=== PATIENT | female | born 1970 | race Caucasian/White ===

== ENCOUNTER 2018-01-12 05:04 | Day surgery (SDC) | payer OTHER ==
[2018-01-12 13:34] VITALS: BMI 32.9
--- NOTE | 2018-01-12 14:50 | HP ---
Admitting History and Physical - Admission Chief Complaint: Prolonged and heavy menses History of Present Illness: 47 yo Para 6 with h/o prolonged and heavy menses is pre op for endometrial ablation. History Source: Patient Limitations to Obtaining History: No Limitations - Past Medical History ...LMP: 01/11/18 ...: No ...Para: 6 - Past Surgical History Additional Past Surgical History: Tubal ligation - Smoking History Smoking history: Never smoked - Alcohol/Substance Use Hx Alcohol Use: No History of Substance Use: reports: None - Social History Usual Living Arrangement: Yes: With Child History of Recent Travel: No Home Medications - Allergies Allergies/Adverse Reactions: Allergies Allergy/AdvReac Type Severity Reaction Status Date / Time No Known Allergies Allergy Verified 07/21/15 10:53 - Home Medications Home Medications: Ambulatory Orders Ergocalciferol [Vitamin D2] 50,000 unit PO WEEKLY 01/12/18 Ferrous Sulfate [Feosol] 325 mg PO DAILY 01/12/18 Family Disease History - Family Disease History Family History: Unremarkable Review of Systems - Review of Systems Constitutional: reports: No Symptoms Eyes: reports: No Symptoms HENT: reports: No Symptoms Neck: reports: No Symptoms Cardiovascular: reports: No Symptoms Respiratory: reports: No Symptoms Gastrointestinal: reports: No Symptoms Genitourinary: reports: Vaginal Bleeding Breasts: reports: No Symptoms Reported Musculoskeletal: reports: No Symptoms Neurological: reports: No Symptoms Hematology/Lymphatic: reports: No Symptoms Psychiatric: reports: No Symptoms Pain Intensity: 2 Physical Examination Vital Signs: Vital Signs Temperature 97.4 F L 01/12/18 13:34 Pulse Rate 71 01/12/18 13:34 Respiratory Rate 20 01/12/18 13:34 Blood Pressure 112/73 01/12/18 13:34 O2 Sat by Pulse Oximetry (%) 99 01/12/18 13:35 Constitutional: Yes: Well Nourished Eyes: Yes: Conjunctiva Clear HENT: Yes: Atraumatic Neck: Yes: Supple Cardiovascular: Yes: Regular Rate and Rhythm Respiratory: Yes: Regular Gastrointestinal: Yes: Normal Bowel Sounds Neurological: Yes: Alert, Oriented ...Motor Strength: WNL Psychiatric: Yes: Alert, Oriented Problem List - Problems (1) Menorrhagia with regular cycle Code(s): N92.0 - EXCESSIVE AND FREQUENT MENSTRUATION WITH REGULAR CYCLE Assessment/Plan Menorrhagia Pre op for endometrial ablation Consent signed Anesthesia to see patient
[2018-01-12] MEDS ORDERED: MIDAZOLAM HCL 2 MG/2 ML SINGLE DOSE VIAL ONE (15:03)
[2018-01-12] MEDS ORDERED: SUCCINYLCHOLINE CHLORIDE 200 MG/10 ML VIAL ONE (15:04)
[2018-01-12] MEDS ORDERED: PROPOFOL 20 ML ONE (15:04)
--- NOTE | 2018-01-12 15:58 | OP ---
Operative Note - Note: Operative Date: 01/12/18 Pre-Operative Diagnosis: Menorrhagia Operation: D&C hysteroscopy / Endometrial ablation attempt Post-Operative Diagnosis: Same as Pre-op Surgeon: Shanon Elaine Anesthesia: General Specimens Removed: Endometrial curettings Estimated Blood Loss (mls): 100
[2018-01-12] MEDS ORDERED: PROMETHAZINE HCL 25 MG/1 ML VIAL IVPUSH PRN (16:23)
[2018-01-12] MEDS ORDERED: oxyCODONE HCL 5 MG TABLET PO PRN (16:23)
[2018-01-12] MEDS ORDERED: ONDANSETRON 4 MG/2 ML VIAL IVPUSH PRN (16:23)
[2018-01-12] MEDS ORDERED: LACTATED RINGERS SOLUTION 1,000 ML IV SCH (16:30)
[2018-01-12 16:56] VITALS: TEMP 97.7
[2018-01-12] MEDS ORDERED: oxyCODONE HCL 5 MG TABLET ONE (18:05)
[2018-01-12 19:48] VITALS: BP 111/78; PULSE 85
--- NOTE | 2018-01-17 18:32 | PATH ---
Surgical Pathology Report Patient Name: OLAMIDE BANUELOS [facility]. Rec. #: [id number] /Age/Gender: 1970 (Age: 47) / F Account: [id number] Location: [facility] SURGICAL Taken: 01/12/2018 Received: 01/13/2018 Reported: 01/17/2018 Physicians: Shanon Elaine M.D. Specimen(s) Received ENDOMETRIAL CURETTINGS Clinical History Menorrhagia Final Diagnosis ENDOMETRIAL CURETTINGS, DILATION AND CURETTAGE: FRAGMENTS OF SECRETORY ENDOMETRIUM WITH GLANDULAR AND STROMAL BREAKDOWN. Electronically Signed Olamide Talley M.D. Gross Description Received in formalin labeled "endometrial curettings," is a 3.5 x 3.2 x 0.4 cm aggregate of red-brown soft tissue fragments admixed with blood clot. The formalin is filtered and the specimen is entirely submitted in 2 cassettes. /01/13/2018 saudi/01/13/2018
--- NOTE | 2018-02-14 16:26 | OP ---
DATE OF OPERATION: 01/12/2018 PREOPERATIVE DIAGNOSIS: Menorrhagia. POSTOPERATIVE DIAGNOSIS: Menorrhagia. PROCEDURE: Dilatation and curettage, hysteroscopy, and endometrial ablation attempt. SURGEON: Shanon Elaine MD ANESTHESIA: General. COMPLICATIONS: None. ESTIMATED BLOOD LOSS: 100 mL DESCRIPTION OF PROCEDURE: Patient was taken to the operating room where general anesthesia was administered. Patient was then placed in lithotomy position. She was then prepped and draped in proper sterile fashion. A weighted speculum was placed in the vagina. The anterior lip of the cervix was grasped with a single-tooth tenaculum. Hysteroscope was then inserted into the uterus, and the hysteroscopy was then performed. Then, before ablation started, the button was pressed to initiate ablation, but the system failed at every attempt due to inability to obtain a cervical seal, and after 3 trials, the ablation procedure was aborted. I proceeded with the D&C, hysteroscopy. A sharp curettage was then performed. The camera was then reinserted for a second look at the endometrial cavity. Then, once finished, the instruments were removed. The patient was taken out of lithotomy position. She was taken to PACU in stable condition. PATHOLOGY: Endometrial curettings. Neris [id number]
== END 2018-01-12 19:48 | disposition home or self-care (01) ==
LOC: JASU-SURG 05:04
PROVIDERS: ATTEND Obstetrics & Gynecology
PROC: 0UDB7ZX Extraction of Endometrium, Via Natural or Artificial Opening, Diagnostic (ICD-10-PCS; principal; 2018-01-12 15:00)
PROC: 0UJD8ZZ Inspection of Uterus and Cervix, Via Natural or Artificial Opening Endoscopic (ICD-10-PCS; 2018-01-12 15:00)
DX: N92.0 Excessive and frequent menstruation with regular cycle (principal)
CPT/HCPCS: 88305-TC; 94760

== ENCOUNTER 2018-05-18 05:25 | Day surgery (SDC) | payer OTHER ==
[2018-05-17 09:03] VITALS: BMI 36.6
[2018-05-18] MEDS ORDERED: ROPIVACAINE HCL 0.5% 30ML VIAL ONE (07:18)
[2018-05-18] MEDS ORDERED: DEXAMETHASONE SOD PHOSPHATE/PF 10 MG/ML SDV ONE ×2 (07:18→07:46)
[2018-05-18] MEDS ORDERED: PHENAZOPYRIDINE HCL 100 MG TABLET (FP) ONE (07:39)
[2018-05-18] MEDS ORDERED: ceFAZolin SODIUM 1 GM VIAL ONE ×2 (07:40→16:29)
[2018-05-18] MEDS ORDERED: PHENAZOPYRIDINE HCL 100 MG TABLET (FP) PO ONE (08:00)
[2018-05-18] MEDS ORDERED: CEFAZOLIN 2 GM in DEXTROSE 5%-WATER - 50 ML IVPB ONE (09:00)
--- NOTE | 2018-05-18 09:15 | HP ---
History & Physical Update - History History: No Change - Physical Physical: No Change - Assessment Assessment: No Change - Plan Plan: No Change (full H&P in chart from 05/16/2018. [employer] phone used iint[employer]IF[employer] Systemser number [id number])
[2018-05-18] MEDS ORDERED: ceFAZolin SODIUM 1 GM VIAL IVPB ONE (10:43)
[2018-05-18] MEDS ORDERED: oxyCODONE HCL 5 MG TABLET PO PRN ×3 (12:46→12:49)
[2018-05-18] MEDS ORDERED: ONDANSETRON 4 MG/2 ML VIAL IVPUSH PRN ×2 (12:49→15:02)
[2018-05-18] MEDS ORDERED: ACETAMINOPHEN 1000 MG/100 ML VIAL (NON FORMULARY) IVPB ONE (12:49)
[2018-05-18] MEDS ORDERED: LACTATED RINGERS SOLUTION 1,000 ML IV SCH (13:00)
[2018-05-18] MEDS ORDERED: ACETAMINOPHEN 325 MG TABLET (FP) PO SCH ×2 (13:00→17:00)
[2018-05-18] MEDS ORDERED: LACTATED RINGERS SOLUTION 1,000 ML/1,000 ML INFUS.BAG IV SCH (13:15)
--- NOTE | 2018-05-18 14:06 | OP ---
Operative Note - Note: Operative Date: 05/18/18 Pre-Operative Diagnosis: Fibroid uterus Operation: Robotic assisted total hysterectomy and bilateral salpingectomy. Post-Operative Diagnosis: Same as Pre-op Surgeon: Sydnee Leigh Motion Picture Narrator: Megan De La Garza Anesthesia: General Estimated Blood Loss (mls): 350 Operative Report Dictated: Yes
--- NOTE | 2018-05-18 14:08 | OP ---
Operative Note - Note: Operative Date: 05/18/18 Pre-Operative Diagnosis: dysmennorrhea Operation: robotic assisted total hysterctomy and bilateral salpingectomy Surgeon: Sydnee Leigh Manager Wireless: Leobardo Herrera Anesthesia: General Specimens Removed: uterus/cervix, bilateral salpingx Estimated Blood Loss (mls): 50 Drains, Volume Out (mls): 400 (hernandez) Fluid Volume Replaced (mls): 1,000 Operative Report Dictated: Yes
--- NOTE | 2018-05-18 15:39 | OP ---
DATE OF OPERATION: 05/18/2018 DATE OF DICTATION: 05/18/2018 PREOPERATIVE DIAGNOSIS: Leiomyomatous uterus, anemia, menorrhagia. POSTOPERATIVE DIAGNOSIS: Leiomyomatous uterus, anemia, menorrhagia. OPERATION: Laparoscopic robotic total hysterectomy and bilateral salpingectomy. SURGEON: Reba Yeager M.D. POLY OPERATOR: Duy Machuca, Duy Lazo ANESTHESIA: General. ANESTHESIOLOGIST: Kong Mtz M.D. FINDINGS: Uterus approximately 14-15 cm in size. Tubes and ovaries noted to be normal. PROCEDURE: Patient was taken to operating room, placed in dorsal lithotomy position, prepped and draped in usual sterile fashion. A timeout was performed in accordance with hospital regulation. Attention was then turned to the vagina, where speculum was placed in the vagina, anterior lip of cervix grasped with single-toothed tenaculum. Cervix was dilated to accommodate the uterine manipulator, and Qiu catheter was then placed. Attention was then drawn to the umbilicus where an 8- mm umbilical incision was made. Veress needle was inserted into the cavity, approximately 3 to 4 L of CO2 was insufflated in the cavity. Veress needle was then removed, and an 8-mm trocar was inserted. Laparoscope with camera attached, visualization revealed leiomyomatous uterus about 15 cm in size, tubes and ovaries noted to be normal. Attention was then drawn to the left side where 2 trocars were placed, 1 in the upper abdomen. A 5-mm incision was made and airseal cannula was inserted. Parallel to the umbilical incision, an 8-mm incision was then inserted, and trocar was inserted under direct visualization. Attention was then drawn to the left side, where 2 parallel incisions were made, and after 8-mm incisions were made, trocars were inserted under direct visualization. The Endoshears and tenaculum was then placed on the right, the vessel sealer was placed on the left. Placements were confirmed. Da Kristine robot had been side docked to the patient's arm, and trocars had been attached. After all instruments were replaced and confirmation of placement was done, the attention was then drawn to the console. Control of the console was done, and tenaculum was used to elevate and move the uterus to the right side, where uteroovarian ligament was identified and clamped and cut, round ligaments identified, clamped and cut. Uterine arteries were identified and clamped and cut, coagulated and cut using vessel sealer. Down to the level of the vesicouterine reflection was then entered and bladder was bluntly dissected out of the operative field. Attention was then drawn to the right side, where the uterus was then elevated to the left side. Uteroovarian ligament identified, clamped and cut. Round ligament identified, clamped and cut. Uterine artery identified, clamped and cut, and coagulated. Bladder was dissected out of the operative field. Cardinal ligament identified, clamped and cut down to the level of the cervix. Endoshears were then used to cut the vagina away from the cervix circumferentially, and uterus and cervix was then removed to the vagina. Tubes were bilaterally grasped and coagulated and cut and left and right tube was then removed. The 2-0 V-Loc suture was then introduced and vagina was then closed in a continuous fashion. The needle was then removed to the trocar. Hemostasis was achieved. Estimated blood loss was 250 mL. All trocars were removed. Incisions were then closed using 3-0 Vicryl suture in continuous fashion. Wound was washed and dressed, patient was found to tolerate procedure well. Pad count was noted to be normal, and patient tolerated procedure well, was taken to recovery room in stable condition. REBA YEAGER M.D. [id number] MTDD
[2018-05-18] MEDS: oxyCODONE HCL 10 MG SUSTAINED ACTING TABLET PO SCH ×2 (16:26→22:22)
[2018-05-18] MEDS ORDERED: DEXTROSE 5%-WATER - 50 ML IVPB ONE (16:29)
[2018-05-18] MEDS: CEFAZOLIN 1 GM in DEXTROSE 5%-WATER - 50 ML IVPB SCH (16:30)
--- NOTE | 2018-05-18 17:16 | PN ---
Progress Note (short form) - Note Progress Note: Post-op check: Pt without nausea/feels hungry. Complaining of slight headache, oxycontin given. Vital Signs Period Temp Pulse Resp BP Sys/Bryson Pulse Ox Last 24 Hr 97.5 F-98.3 F 72-96 16-73 119-135/68-88 96-100 uop-700 ml since OR GEN: A&3x3, NAD ABD: soft, non-distended, inc tenderness. Inc c/d/i LE: scd in place and working A/p: s/p robotic hysterectomy/b/l salpingectomy Clears and advance as tolerated IV ibuprofen for pain as needed Continue IV fluids OOB/ambulate as tolerated DVT ppx with SCD/ambulate/lovenox in the am
[2018-05-18] MEDS: IBUPROFEN 800 MG/8 ML IJ IVPB PRN (17:28)
[2018-05-18 18:41] LABS: BASO % 0.1 % (0-2.0); HEMATOCRIT 37.4 % (32.4-45.2); HEMOGLOBIN 11.9 GM/dL (10.7-15.3); LYMPH % 7.1 % (8-40); MCH 24.9 pg (25.7-33.7); MCHC 31.9 g/dl (32.0-36.0); MEAN CELL VOLUME 77.9 fl (80-96); MONO % 0.9 % (3.8-10.2); NEUT % 91.9 % (42.8-82.8); PLATELET COUNT 366 K/MM3 (134-434); RBC 4.81 M/mm3 (3.60-5.2); RDW 17.8 % (11.6-15.6); WHITE BLOOD COUNT 12.8 K/mm3 (4.0-10.0)
[2018-05-18 19:03] LABS: ANION GAP 10 MMOL/L (8-16); BLOOD UREA NITROGEN 9 mg/dL (7-18); CALCIUM 9.2 mg/dL (8.5-10.1); CHLORIDE 103 mmol/L (98-107); CO2 25 mmol/L (21-32); CREATININE 0.6 mg/dL (0.55-1.3); GLUCOSE,RANDOM 122 mg/dL (74-106); POTASSIUM 4.4 mmol/L (3.5-5.1); SODIUM 138 mmol/L (136-145)
[2018-05-18 21:09] LABS: ANISOCYTOSIS 1+; MACROCYTOSIS 1+; OVALOCYTE 1+
[2018-05-18 21:11] LABS: PLATELET ESTIMATE ADEQUATE
[2018-05-18] MEDS: ACETAMINOPHEN 325 MG TABLET (FP) PO SCH (22:23)
[2018-05-19] MEDS ORDERED: ceFAZolin SODIUM 1 GM VIAL ONE ×3 (01:47→08:56)
[2018-05-19] MEDS ORDERED: DEXTROSE 5%-WATER - 50 ML IVPB ONE ×2 (01:47→08:56)
[2018-05-19] MEDS: CEFAZOLIN 1 GM in DEXTROSE 5%-WATER - 50 ML IVPB SCH ×2 (01:52→09:44)
[2018-05-19] MEDS: ACETAMINOPHEN 325 MG TABLET (FP) PO SCH ×2 (02:29→06:46)
--- NOTE | 2018-05-19 07:31 | SURG ---
Surgery Financial Market Dealer Note Financial Market Dealer: Leobardo Herrera PA-C Date of Service: 05/19/18 Diagnosis: Fibroid uterus Procedure: Robotic assisted total hysterectomy and bilateral salpingectomy I was present for the entirety of the operative procedure. For further detail, please refer to operative report.
[2018-05-19 08:29] LABS: BASO % 0.2 % (0-2.0); HEMATOCRIT 32.9 % (32.4-45.2); HEMOGLOBIN 10.6 GM/dL (10.7-15.3); LYMPH % 14.6 % (8-40); MCH 24.8 pg (25.7-33.7); MCHC 32.2 g/dl (32.0-36.0); MEAN PLT VOLUME 7.2 fl (7.5-11.1); MONO % 6.8 % (3.8-10.2); NEUT % 78.4 % (42.8-82.8); PLATELET COUNT 331 K/MM3 (134-434); RBC 4.27 M/mm3 (3.60-5.2); RDW 17.6 % (11.6-15.6); WHITE BLOOD COUNT 10.1 K/mm3 (4.0-10.0)
--- NOTE | 2018-05-19 08:50 | PN ---
Progress Note (short form) - Note Progress Note: POD#1 Pt without any complaints of nausea. Qiu removed this am and waiting to void. OOB and ambulate. She hasn't passed any flatus. Vital Signs Period Temp Pulse Resp BP Sys/Bryson Pulse Ox Last 24 Hr 97.6 F-99.3 F 72-96 18-73 102-136/65-81 96-100 uop-3100ml yellow/urine outpt GEN: A&0x3, NAD CV: RRR Lungs: CTA b/l ABD: soft, non-distended, inc tenderness. Inc c/d/i LE: Guicho/scds in place. No calf swelling or tenderness b/l A/P: Laboratory Tests 05/18/05/18/18 05/19/18 18:00 18:00 06:20 WBC 12.8 H 10.1 H Hgb 11.9 10.6 L Hct 37.4 32.9 Sodium 138 Potassium 4.4 Chloride 103 Carbon Dioxide 25 Anion Gap 10 BUN 9 A/P: 48 yo female s/p robotic assisted hysterectomy and b/l salpingectomy Diet advanced this am, awaiting flatus OOB and ambulate DVT ppx with SCDs/lovenox Discontinue IVF Oral pain medicaitons/iv ibuprofen D/w Dr. Leigh
[2018-05-19] MEDS ORDERED: PT OWN MED DRAWER 7, Y5N ONE (08:56)
[2018-05-19 09:05] LABS: ANION GAP 6 MMOL/L (8-16); BLOOD UREA NITROGEN 9 mg/dL (7-18); CALCIUM 8.2 mg/dL (8.5-10.1); CHLORIDE 104 mmol/L (98-107); CO2 26 mmol/L (21-32); CREATININE 0.5 mg/dL (0.55-1.3); GLUCOSE,RANDOM 92 mg/dL (74-106); POTASSIUM 3.9 mmol/L (3.5-5.1); SODIUM 136 mmol/L (136-145)
[2018-05-19] MEDS ORDERED: FERROUS SO4 325 MG TABLET (FP) PO SCH (10:00)
[2018-05-19] MEDS ORDERED: ENOXAPARIN NA (PORCINE) 30 MG/0.3 ML DISP.SYRIN SQ SCH (10:00)
[2018-05-19] MEDS ORDERED: ENOXAPARIN NA (PORCINE) 40 MG/0.4 ML DISP.SYRIN SQ SCH (10:00)
[2018-05-19] MEDS: IBUPROFEN 800 MG/8 ML IJ IVPB PRN (10:44)
[2018-05-19 10:48] LABS: ANISOCYTOSIS 0; MACROCYTOSIS 0; PLATELET ESTIMATE NORMAL
[2018-05-19 12:16] VITALS: TEMP 98.5
[2018-05-19 14:00] VITALS: BP 115/68; PULSE 73
--- NOTE | 2018-05-22 10:09 | PATH ---
Surgical Pathology Report Patient Name: MARGUERITE BANUELOS [facility]. Rec. #: [id number] /Age/Gender: 1970 (Age: 48) / F Account: [id number] Location: AMBULATORY SURG Taken: 05/18/2018 Received: 05/18/2018 Reported: 05/22/2018 Physicians: Sydnee Leigh M.D. Specimen(s) Received A: UTERUS B: LEFT FALLOPIAN TUBE C: RIGHT FALLOPIAN TUBE Clinical History Leiomyoma of uterus Final Diagnosis A. UTERUS, HYSTERECTOMY: HYSTERECTOMY SPECIMEN WITH LEIOMYOMATA. PROLIFERATIVE ENDOMETRIUM. CERVIX WITH SQUAMOUS METAPLASIA, FOCAL ACUTE AND CHRONIC INFLAMMATION. B. LEFT FALLOPIAN TUBE, SALPINGECTOMY: PORTION OF FALLOPIAN TUBE WITH PARATUBAL CYSTS. C. RIGHT FALLOPIAN TUBE, SALPINGECTOMY: PORTION OF FALLOPIAN TUBE SHOWING FOCAL ACUTE AND CHRONIC SALPINGITIS IN A BACKGROUND OF PARATUBAL CYSTS. Electronically Signed Beck Wilson M.D. Gross Description A. Received in formalin labeled "uterus is," is a 355 g uterus with an attached cervix. No tubes or ovaries present. The specimen measures 15.1 cm from superior to inferior, 8.5 cm from anterior to posterior, and 6.5 cm from left to right. The serosa is jiang-pink and smooth. The attached cervix measures 5 cm in length and averages 3.1 cm in diameter. The ectocervix is jiang-pink, smooth and glistening. The endocervix is unremarkable. The endometrial cavity measures 7 cm in length and averages 4.8 cm from cornu to cornu. The endometrium is jiang-red and measures up to 0.2 cm in thickness. The myometrium displays multiple intramural and two submucosal nodules, ranging from 0.8cm to 5.0cm in greatest dimension. The cut surface of the nodules is jiang and rubbery with whorled architecture. No necrosis, discoloration, or hemorrhage present. The remaining myometrium is jiang-pink and measures up to 2.5 cm in thickness. Palaeontologist sections are submitted in 12 cassettes as follows: 1-3: anterior cervix; 7-4-crhveaxz endomyometrium with intramural nodule; 6-7: posterior cervix; 0-0-lzjxqxfda endomyometrium with submucosal nodule; 10 one of the submucosa nodule 11-12-the largest nodule (submucosal). B. Received fresh labelled "left fallopian tube" is a 0.7 cm long by 0.5 cm in diameter portion of tissue consistent with a portion of fallopian tube with a fimbriated end. Multiple paratubal cysts measuring up to 1cm in greatest dimension are present. Sectioned and totally submitted in two cassettes. C. Received fresh labelled "right fallopian tube" is a 2.5 cm long by 1.0 cm in diameter portion of tissue consistent with a portion of fallopian tube. The fimbriated end is identified. Multiple paratubal cysts measuring up to 0.8cm in greatest dimension are present. Sectioned and business banking representative sections submitted in two cassettes. __ OLAF/05/19/2018 nadir/05/19/2018
== END 2018-05-19 15:36 | disposition home or self-care (01) ==
LOC: JASUSAT 05:25 → J8W 15:34 → JASUSAT 05-19 15:36
PROVIDERS: ATTEND Obstetrics & Gynecology
PROC: 8E0W8CZ Robotic Assisted Procedure of Trunk Region, Via Natural or Artificial Opening Endoscopic (ICD-10-PCS; 2018-05-18)
PROC: 0UT9FZZ Resection of Uterus, Via Natural or Artificial Opening With Percutaneous Endoscopic Assistance (ICD-10-PCS; principal; 2018-05-18 09:00)
PROC: 0UT7FZZ Resection of Bilateral Fallopian Tubes, Via Natural or Artificial Opening With Percutaneous Endoscopic Assistance (ICD-10-PCS; 2018-05-18 09:00)
DX: D25.9 Leiomyoma of uterus, unspecified (principal); D64.9 Anemia, unspecified; N92.0 Excessive and frequent menstruation with regular cycle
CPT/HCPCS: 58552; S2900; 36415; 80048; 85025; 86850; 86900; 86901; 86922; 88302-TC; 88307-TC; 94760; J0131

== ENCOUNTER 2018-07-25 12:35 | Emergency (ER) | payer OTHER ==
[2018-07-25 13:06] VITALS: BP 137/73; PULSE 95; TEMP 98.8; BMI 46.0
[2018-07-25] MEDS ORDERED: DEXAMETHASONE LIQUID 0.5 MG/5 ML 240 ML BULK BOTTLE PO ONE (14:00)
--- NOTE | 2018-07-25 14:00 | PDOC ---
History of Present Illness - General Chief Complaint: Cold Symptoms Stated Complaint: PAIN Time Seen by Provider: 07/25/18 13:53 History Source: Patient Exam Limitations: Language Barrier (friendfundracom used) - History of Present Illness Initial Comments: 07/25/18 19:21 Patient is a 48-year-old female who presents to the emergency department for 2 months of coughing. Patient states that she had a cold approximately 2 months ago and then the coughing never stopped. She states that the cough alternates between being dry and bringing up green mucus. She states that she has increased coughing at night. Denies fevers, chills, sore throat, earache, difficulty breathing, nausea, vomiting, and chest pain Past History - Travel Traveled outside of the country in the last 30 days: No Close contact w/someone who was outside of country & ill: No - Past Medical History Allergies/Adverse Reactions: Allergies Allergy/AdvReac Type Severity Reaction Status Date / Time No Known Allergies Allergy Verified 07/25/18 13:05 Home Medications: Ambulatory Orders Ergocalciferol [Vitamin D2] 50,000 unit PO WEEKLY 01/12/18 Ferrous Sulfate [Feosol] 325 mg PO DAILY 01/12/18 Oxycodone HCl/Acetaminophen [Percocet 5-325 mg Tablet] 1 - 2 tab PO Q6H PRN #30 tab MDD 8 05/19/18 Albuterol Sulfate Inhaler - [Ventolin HFA Inhaler -] 1 - 2 inh PO Q4H #1 inhaler 07/25/18 Guaifenesin AC [Robitussin AC] 10 ml PO Q6H PRN #200 ml MDD 4 07/25/18 Methylprednisolone [Medrol Dose Luis] 4 mg PO ASDIR #21 tablet 07/25/18 Anemia: Yes Asthma: No Cancer: No Cardiac Disorders: No CVA: No COPD: No CHF: No Dementia: No Diabetes: No GI Disorders: No Disorders: No HTN: No Hypercholesterolemia: No Liver Disease: No Seizures: No Thyroid Disease: No - Suicide/Smoking/Psychosocial Hx Smoking History: Never smoked Have you smoked in the past 12 months: No Information on smoking cessation initiated: No Hx Alcohol Use: No Drug/Substance Use Hx: No Substance Use Type: None Hx Substance Use Treatment: No Review of Systems - Review of Systems Able to Perform ROS?: Yes Comments:: 07/25/18 17:18 CONSTITUTIONAL: Absent: fever, chills, diaphoresis, generalized weakness, malaise, loss of appetite HEENT: Absent: rhinorrhea, nasal congestion, throat pain, throat swelling, difficulty swallowing, mouth swelling, ear pain, eye pain, visual Changes CARDIOVASCULAR: Absent: chest pain, loss of consciousness, palpitations, irregular heart rate, peripheral edema RESPIRATORY: Present: cough, shortness of breath Absent: dyspnea with exertion, orthopnea, wheezing, stridor, hemoptysis GASTROINTESTINAL: Absent: abdominal pain, abdominal distension, nausea, vomiting, diarrhea, constipation, melena, hematochezia GENITOURINARY: Absent: dysuria, frequency, urgency, hesitancy, hematuria, flank pain, genital pain MUSCULOSKELETAL: Absent: myalgia, arthralgia, joint swelling SKIN: Absent: rash, itching, pallor HEMATOLOGIC/IMMUNOLOGIC: Absent: easy bleeding, easy bruising, lymphadenopathy, frequent infections ENDOCRINE: Absent: unexplained weight gain, unexplained weight loss, heat intolerance, cold intolerance NEUROLOGIC: Absent: headache, focal weakness or paresthesias, dizziness, unsteady gait, seizure, mental status changes, bladder or bowel incontinence PSYCHIATRIC: Absent: anxiety, depression, suicidal or homicidal ideation, hallucinations. Is the patient limited Khmer proficient: No *Physical Exam - Vital Signs Last Vital Signs Temp Pulse Resp BP Pulse Ox 98.8 F 95 H 22 H 137/73 99 07/25/18 13:03 07/25/18 13:03 07/25/18 13:03 07/25/18 13:03 07/25/18 13:03 - Physical Exam Comments: 07/25/18 17:19 GENERAL: Well developed, well nourished. Awake and alert. No acute distress. Moderate dry cough upon start of examination HEENT: Normocephalic, atraumatic. PERRLA, EOMI. No conjunctival pallor. Sclera are non- icteric. Moist mucous membranes. Oropharynx is clear. NECK: Supple. Full ROM. No JVD. Carotid pulses 2+ and symmetric, without bruits. No thyromegaly. No lymphadenopathy. CARDIOVASCULAR: Regular rate and rhythm. No murmurs, rubs, or gallops. Distal pulses are 2+ and symmetric. PULMONARY: No evidence of respiratory distress. Lungs with scattered expiratory wheezing. No rales or rhonchi. ABDOMINAL: Soft. Non-tender. Non-distended. No rebound or guarding. No organomegaly. Normoactive bowel sounds. MUSCULOSKELETAL Normal range of motion at all joints. No bony deformities or tenderness. No CVA tenderness. EXTREMITIES: No cyanosis. No clubbing. No edema. No calf tenderness. SKIN: Warm and dry. Normal capillary refill. No rashes. No jaundice. NEUROLOGICAL: Alert, awake, appropriate. Cranial nerves 2-12 intact. No deficits to light touch and temperature in face, upper extremities and lower extremities. No motor deficits in the in face, upper extremities and lower extremities. Normoreflexic in the upper and lower extremities. Normal speech. Toes are down- going bilaterally. Gait is normal without ataxia. PSYCHIATRIC: Cooperative. Good eye contact. Appropriate mood and affect. Moderate Sedation - Procedure Monitoring Vital Signs: Procedure Monitoring Vital Signs Temperature 98.8 F 07/25/18 13:03 Pulse Rate 95 H 07/25/18 13:03 Respiratory Rate 22 H 07/25/18 13:03 Blood Pressure 137/73 07/25/18 13:03 O2 Sat by Pulse Oximetry (%) 99 07/25/18 13:03 Medical Decision Making - Medical Decision Making 07/25/18 17:24 Patient is a 48-year-old female who presents to the emergency department for cough for 2 months. On exam patient sounds tight with fair aeration of the bases and expiratory wheezing. Patient is afebrile and vital signs are stable. Chest x-ray is negative for pneumonia. Patient given Decadron, Robitussin, for DuoNeb's with relief of her symptoms. Repeat lung exam with good aeration to the bases and no wheezing. Most likely a bronchitis or reactive airway disease. We'll discharge home with prednisone, albuterol inhaler and Robitussin- Patient states she has follow-up with her primary care doctor on Tuesday, told to keep that appointment. Discharge home I discussed the physical exam findings, ancillary test results and final diagnoses with the patient. I answered all of the patient's questions. The patient was satisfied with the care received and felt comfortable with the discharge plan and treatment plan. The Patient agrees to follow up with the primary care physician/specialist within 24-72 hours. Return precautions were given. *DC/Admit/Observation/Transfer Diagnosis at time of Disposition: Bronchitis - Discharge Dispostion Disposition: HOME Condition at time of disposition: Stable Decision to Admit order: No - Prescriptions Prescriptions: Albuterol Sulfate Inhaler - [Ventolin HFA Inhaler -] 1 - 2 inh PO Q4H #1 inhaler Guaifenesin AC [Robitussin AC] 10 ml PO Q6H PRN #200 ml MDD 4 PRN Reason: Cough Methylprednisolone [Medrol Dose Luis] 4 mg PO ASDIR #21 tablet - Referrals Referrals: Kendrick Ash MD [Primary Care Provider] - - Patient Instructions Printed Discharge Instructions: DI for Acute Bronchitis Additional Instructions: You have bronchitis. This is an irritation of the upper airway which is causing her cough. Your chest x-ray was normal today. There is no pneumonia. Please take the Medrol Dosepak as prescribed. He instructions are in the box. You may use the albuterol inhaler every 4 hours (1-2 puffs) to help with her breathing. You may take the Robitussin with codeine 10ml every 6 hours as needed for cough. Do not drink alcohol or drive after taking this medication as it may make you sleepy. Please follow-up with your primary care doctor as previously arranged for Tuesday. Return to the emergency department if you have increased difficulty breathing, worsening shortness of breath, fever, or if you have any changes in your symptoms. Tienes bronquitis. [place] es allan irritacin de la va area superior que est causando pickett tos. Tu radiografa de trax era normal hoy. No hay neumona. Por favor, tome el Medrol Dosepak segn lo prescrito. Las instrucciones estn en la caja. Puede usar el inhalador de albuterol cada 4 horas (1-2 inhalaciones) para ayudarla a respirar. Puede na el Robitussin con codena 10 ml cada 6 horas segn sea necesario para la tos. No jeremy alcohol ni maneje despus de na yvette medicamento, ya que puede causarle sueo. Por favor jody un seguimiento con pickett mdico de atencin primaria janae se asiya previamente para el viernes. Regrese al departamento de emergencias si tiene ms dificultad para respirar, empeoramiento de la dificultad para respirar, fiebre o si tiene algn cambio en nora sntomas. Print Language: BRITISH [place] - Post Discharge Activity Forms/Work/School Notes: Back to Work
[2018-07-25] MEDS ORDERED: ALBUTEROL SO4 2.5/IPRATROPIUM 0.5 INH SOL 3 ML VIAL.NEB. NEB ONE ×3 (14:01→16:07)
[2018-07-25] MEDS ORDERED: guaiFENesin/D-METHORPHAN HB 1 EACH TAB.ER.12H PO ONE (14:01)
[2018-07-25] MEDS ORDERED: guaiFENesin/D-METHORPHAN HB 10 ML UNIT-DOSE CUPS ONE (14:13)
[2018-07-25] MEDS ORDERED: DEXAMETHASONE SOD PHOSPHATE 10 MG/1 ML VIAL ONE (14:13)
[2018-07-25] MEDS ORDERED: guaiFENesin/D-METHORPHAN HB 10 ML UNIT-DOSE CUPS PO ONE (15:42)
[2018-07-25] MEDS: ALBUTEROL SO4 2.5/IPRATROPIUM 0.5 INH SOL 3 ML VIAL.NEB. NEB SCH ×4 (15:43→16:38)
== END 2018-07-25 17:25 | disposition home or self-care (01) ==
LOC: JERFT 12:35
PROC: 3E0F7GC Introduction of Other Therapeutic Substance into Respiratory Tract, Via Natural or Artificial Opening (ICD-10-PCS; principal; 2018-07-25)
PROC: 3E0F7GC Introduction of Other Therapeutic Substance into Respiratory Tract, Via Natural or Artificial Opening (ICD-10-PCS; 2018-07-25)
DX: J40 Bronchitis, not specified as acute or chronic (principal); D64.9 Anemia, unspecified
CPT/HCPCS: 71046-TC-FY; 94640; 99281-25

== ENCOUNTER 2019-04-17 09:49 | Emergency (ER) | payer OTHER ==
[2019-04-17 09:56] VITALS: BMI 34.7
[2019-04-17] MEDS ORDERED: ACETAMINOPHEN 1000 MG/100 ML VIAL (NON FORMULARY) IVPB ONE (10:22)
[2019-04-17] MEDS ORDERED: SODIUM CHLORIDE 1,000 ML IV STA (10:22)
[2019-04-17] MEDS ORDERED: ACETAMINOPHEN INJECTION 100 ML IVPB ONE (10:27)
--- NOTE | 2019-04-17 10:27 | PDOC ---
History of Present Illness - General Chief Complaint: Pain Stated Complaint: COUGH/FEVER/HEADACHE/ABD PAIN Time Seen by Provider: 04/17/19 10:17 History Source: Patient - History of Present Illness Timing/Duration: other Past History - Past Medical History Allergies/Adverse Reactions: Allergies Allergy/AdvReac Type Severity Reaction Status Date / Time No Known Allergies Allergy Verified 04/17/19 09:56 Home Medications: Ambulatory Orders Ergocalciferol [Vitamin D2] 50,000 unit PO WEEKLY 01/12/18 Ferrous Sulfate [Feosol] 325 mg PO DAILY 01/12/18 Oxycodone HCl/Acetaminophen [Percocet 5-325 mg Tablet] 1 - 2 tab PO Q6H PRN #30 tab MDD 8 05/19/18 Albuterol Sulfate Inhaler - [Ventolin HFA Inhaler -] 1 - 2 inh PO Q4H #1 inhaler 07/25/18 Guaifenesin AC [Robitussin AC] 10 ml PO Q6H PRN #200 ml MDD 4 07/25/18 Methylprednisolone [Medrol Dose Luis] 4 mg PO ASDIR #21 tablet 07/25/18 Ibuprofen [Motrin -] 600 mg PO QID #28 tablet 04/17/19 Sulfamethoxazole/Trimethoprim [Bactrim Ds Tablet] 1 each PO BID #14 tablet 04/17 Anemia: Yes Asthma: No Cancer: No Cardiac Disorders: No CVA: No COPD: No CHF: No Dementia: No Diabetes: No GI Disorders: No Disorders: No HTN: No Hypercholesterolemia: No Liver Disease: No Seizures: No Thyroid Disease: No - Suicide/Smoking/Psychosocial Hx Smoking History: Never smoked Have you smoked in the past 12 months: No Hx Alcohol Use: No Drug/Substance Use Hx: No Substance Use Type: None Hx Substance Use Treatment: No Review of Systems - Review of Systems Constitutional: Yes: Fever, Malaise Respiratory: No: Cough, Shortness of Breath Cardiac (ROS): No: Chest Pain ABD/GI: No: Diarrhea, Nausea, Vomiting : Yes: Flank Pain. No: Dysuria, Discharge Musculoskeletal: Yes: Back Pain. No: Neck Pain Neurological: Yes: Headache. No: Dizziness *Physical Exam - Vital Signs Last Vital Signs Temp Pulse Resp BP Pulse Ox 98.6 F 100 H 18 117/85 98 04/17/19 09:54 04/17/19 09:54 04/17/19 09:54 04/17/19 09:54 04/17/19 09:54 - Physical Exam General Appearance: Yes: Appropriately Dressed, Mild Distress HEENT: positive: Normal Voice Neck: positive: Supple Respiratory/Chest: positive: Lungs Clear, Normal Breath Sounds. negative: Respiratory Distress Cardiovascular: positive: Regular Rate, S1, S2 Gastrointestinal/Abdominal: positive: Normal Bowel Sounds, Tender (poorly localized ttp to L side of abd), Soft. negative: Distended, Guarding, Rebound, Spleenomegaly Musculoskeletal: positive: CVA Tenderness (L) Extremity: positive: Normal Inspection Integumentary: positive: Dry, Warm Neurologic: positive: Fully Oriented, Alert, Normal Mood/Affect, Motor Strength 12/24 ED Treatment Course - LABORATORY CBC & Chemistry Diagram: 04/17/19 10:37 04/17/19 10:37 Medical Decision Making - Medical Decision Making 04/17/19 10:23 49-year-old female s/p remote hysterectomy, migraines, here with malaise with SANTANA , ow-grade fever and body aches including left mid back pain x 6 days. Patient denies any dysuria or frequency but does report ?hematuria vs dark urine. No neck pain, dizziness, photophobia, nausea, vomiting or change in bowel movements. No h/o renal stones. No recen travel or sick contacts see exam Possible uti/pyelo vs viral syndrome Tachy to 111 and errol mildly uncomfortable w/ ?L CVAT -antipyretic -IVF -labs -ua/cx -dispo pending 04/17/19 10:27 04/17/19 12:14 Labs unremarkable. UA w/ 2+ LE, >100 fritz and 39 WBC. Based on sxs, will tx (no prior sen on record here). Dose of rocephin in progress. Anticipate dc w/ abx 04/17/19 13:04 S/p rocephin. Rpt vitals wnl. Stable for dc w/ return precautions *DC/Admit/Observation/Transfer Diagnosis at time of Disposition: Dysuria Fever Qualifiers: Fever type: unspecified Qualified Code(s): R50.9 - Fever, unspecified - Discharge Dispostion Disposition: HOME Condition at time of disposition: Improved - Prescriptions Prescriptions: Ibuprofen [Motrin -] 600 mg PO QID #28 tablet Sulfamethoxazole/Trimethoprim [Bactrim Ds Tablet] 1 each PO BID #14 tablet - Referrals Referrals: Kendrick Ash MD [Primary Care Provider] - - Patient Instructions Printed Discharge Instructions: Kidney Infection Additional Instructions: Segn nora laboratorios, recibi tratamiento para allan posible infeccin de orina / rin. [place] los medicamentos segn las indicaciones y, si los sntomas persisten y / o empeoran, regrese al servicio de urgencias. De lo contrario, jody un seguimiento con pickett PMD Print Language: MONGOLIAN - Post Discharge Activity Forms/Work/School Notes: Back to Work
[2019-04-17 10:51] LABS: BASO % 0.6 % (0-2.0); EOS % 1.8 % (0-4.5); HEMATOCRIT 38.6 % (32.4-45.2); HEMOGLOBIN 12.7 GM/dL (10.7-15.3); LYMPH % 28.5 % (8-40); MCH 25.4 pg (25.7-33.7); MCHC 32.9 g/dl (32.0-36.0); MEAN CELL VOLUME 77.2 fl (80-96); MEAN PLT VOLUME 6.8 fl (7.5-11.1); MONO % 12.2 % (3.8-10.2); NEUT % 56.9 % (42.8-82.8); PLATELET COUNT 410 K/MM3 (134-434); RDW 15.8 % (11.6-15.6); WHITE BLOOD COUNT 7.8 K/mm3 (4.0-10.0)
[2019-04-17 11:08] LABS: EPI CELLS 2.3 /HPF (0-5/HPF); HYALINE CASTS 12 /lpf (0-8); URINE APPEARANCE CLEAR; URINE BACTERIA 173.4 /hpf (NEGATIVE); URINE BILIRUBIN NEGATIVE (NEGATIVE); URINE COLOR YELLOW; URINE GLUCOSE (UA) NEGATIVE (NEGATIVE); URINE KETONE TRACE (NEGATIVE); URINE LEUK ESTERASE 2+ (NEGATIVE); URINE NITRITE NEGATIVE (NEGATIVE); URINE PROTEIN NEGATIVE (NEGATIVE); URINE RBC 6 /hpf (0-4); URINE UROBILINOGEN 0.2 mg/dL (0.2-1.0); URINE WBC 39 /hpf (0-5)
--- NOTE | 2019-04-17 11:10 | PDOC ---
*Physical Exam - Vital Signs Last Vital Signs Temp Pulse Resp BP Pulse Ox 98.6 F 100 H 18 117/85 98 04/17/19 09:54 04/17/19 09:54 04/17/19 09:54 04/17/19 09:54 04/17/19 09:54 ED Treatment Course - LABORATORY CBC & Chemistry Diagram: 04/17/19 10:37 04/17/19 10:37 - ADDITIONAL ORDERS Additional order review: Laboratory Results 04/17/19 10:37 Urine Color Yellow Urine Appearance Clear Urine pH 6.0 Ur Specific [place] 1.013 Urine Protein Negative Urine Glucose (UA) Negative Urine Ketones Trace H Urine Blood Trace Urine Nitrite Negative Urine Bilirubin Negative Urine Urobilinogen 0.2 Ur Leukocyte Esterase 2+ H Urine WBC (Auto) 39 Urine RBC (Auto) 6 Urine Casts (Auto) 12 U Epithel Cells (Auto) 2.3 Urine Bacteria (Auto) 173.4 - Medications Given in the ED: ED Medications Discontinued Medications Generic Name Dose Route Start Last Admin Trade Name Freq PRN Reason Stop Dose Admin Acetaminophen 1,000 mg 04/17/19 10:22 04/17/19 10:44 Ofirmev Injection - IVPB 04/17/19 10:23 1,000 mg ONCE ONE Administration Medical Decision Making - Medical Decision Making 04/17/19 11:10 Pt seen by Midlevel Provider under my direct supervision Ancillary studies reviewed Laboratory Tests 04/17/19 04/17/19 04/17/19 10:37 10:37 10:37 WBC 7.8 BUN 10.7 Creatinine 0.7 Urine Nitrite Negative Ur Leukocyte Esterase 2+ H Urine WBC (Auto) 39 Urine RBC (Auto) 6 Urine Casts (Auto) 12 U Epithel Cells (Auto) 2.3 Urine Bacteria (Auto) 173.4 Abx ordered Cultures sent Will adjust abx as dictated by urine culture *DC/Admit/Observation/Transfer Diagnosis at time of Disposition: Fever, Dysuria - Discharge Dispostion Disposition: HOME Condition at time of disposition: Improved - Prescriptions Prescriptions: Ibuprofen [Motrin -] 600 mg PO QID #28 tablet Sulfamethoxazole/Trimethoprim [Bactrim Ds Tablet] 1 each PO BID #14 tablet - Referrals Referrals: Kendrick Ash MD [Primary Care Provider] - - Patient Instructions Printed Discharge Instructions: Kidney Infection Additional Instructions: [place] nora laboratorios, recibi tratamiento para allan posible infeccin de orina / rin. [place] los medicamentos segn las indicaciones y, si los sntomas persisten y / o empeoran, regrese al servicio de urgencias. De lo contrario, jody un seguimiento con pickett PMD Print Language: YAKUT - Post Discharge Activity Forms/Work/School Notes: Back to Work
[2019-04-17 11:18] LABS: ALBUMIN 3.4 g/dl (3.4-5.0); BILIRUBIN,TOTAL 0.6 mg/dL (0.2-1); BLOOD UREA NITROGEN 10.7 mg/dL (7-18); CALCIUM 9.1 mg/dL (8.5-10.1); CREATININE 0.7 mg/dL (0.55-1.3); POTASSIUM 3.8 mmol/L (3.5-5.1); TOT PROT 7.8 g/dl (6.4-8.2)
[2019-04-17] MEDS ORDERED: CEFTRIAXONE 1 GM/50 ML BAG ONE (11:46)
[2019-04-17 12:07] VITALS: BP 107/62; PULSE 75; TEMP 98.8
== END 2019-04-17 13:17 | disposition home or self-care (01) ==
LOC: JER 09:49
PROC: 3E033NZ Introduction of Analgesics, Hypnotics, Sedatives into Peripheral Vein, Percutaneous Approach (ICD-10-PCS; principal; 2019-04-17)
PROC: 3E03329 Introduction of Other Anti-infective into Peripheral Vein, Percutaneous Approach (ICD-10-PCS; 2019-04-17)
DX: R30.0 Dysuria (principal)
CPT/HCPCS: 36415; 80053; 81003; 85025; 87086; 87186; 96374; 96375; 99283-25; J0131; J7030

== ENCOUNTER 2019-06-09 20:57 | Emergency (ER) | payer OTHER ==
--- NOTE | 2019-06-09 21:13 | PDOC ---
History of Present Illness - General Chief Complaint: Pain Stated Complaint: TOOTHACHE Time Seen by Provider: 06/09/19 21:11 - History of Present Illness Initial Comments: 06/09/19 21:13 CHIEF COMPLAINT: dental pain HISTORY OF PRESENT ILLNESS: 49 yo F with hx of migraines and uterine fibroids (s /p hysterectomy) presents to fast track with tooth pain. Patient reports having had tooth pain for 2 months now, and was given amoxicillin by a dentist 2 months ago but has been having problems with her insurance and has been unable to go back. She reports pain to both side of her teeth but more localized to the R upper and lower molars. She also c/o of pain to "all the bones in my face " and describes the pain as a sharp, squeezing pain. Patient denies any fever, chills, nausea, vomiting diarrhea. No recent travel or sick contacts. PAST MEDICAL HISTORY: Denies past medical history FAMILY HISTORY: Denies SOCIAL HISTORY: Denies tobacco, alcohol, illicit drug use. SURGICAL HISTORY: Denies ALLERGIES: No known drug allergies REVIEW OF SYSTEMS General/Constitutional: Denies fever or chills. Denies weakness, weight change. HEENT: Dental pain. Cardiovascular: Denies chest pain or shortness of breath. Respiratory: Denies cough, wheezing, or hemoptysis. Gastrointestinal: Denies nausea, vomiting, diarrhea or constipation. Denies rectal bleeding. Genitourinary: Denies dysuria, frequency, or change in urination. Musculoskeletal: Denies joint or muscle swelling or pain. Denies neck or back pain. Skin and breasts: Denies rash or easy bruising. Neurologic: Headache. Denies vertigo, loss of consciousness, or loss of sensation. Psychiatric: Denies depression or anxiety. PHYSICAL EXAM General Appearance: Well-appearing, appropriately dressed. No apparent distress , no intoxication. HEENT: Marked TTP over maxillary/temporal/mastoid bones. Normal dentition, no obvious dental caries or fractures appreciated. EOMI, PERRLA, normal ENT inspection, normal voice, TMs normal, pharynx normal. No conjunctival pallor. No photophobia, scleral icterus. Neck: Supple. Trachea midline. No tenderness, rigidity, carotid bruit, stridor , lymphadenopathy, or thyromegaly. Respiratory/Chest: Lungs CTAB. No shortness of breath, chest tenderness, respiratory distress, accessory muscle use. No crackles, rales, rhonchi, stridor , wheezing, dullness Cardiovascular: RRR. S1, S2. No JVD, murmur, bradycardia, tachycardia. Vascular Pulses: Dorsalis-Pedis (R): 2+, Dorsalis-Pedis (L): 2+ Gastrointestinal/Abdominal: Normal bowel sounds. Abdomen soft, non-distended. No tenderness or rebound tenderness. No organomegaly, pulsatile mass, guarding , hernia, hepatomegaly, splenomegaly. Lymphatic: No adenopathy, tenderness. Musculoskeletal/Extremities: Normal inspection. FROM of all extremities, normal capillary refill. Pelvis Stable. No CVA tenderness. No tenderness to extremities, pedal edema, swelling, erythema or deformity. Integumentary: Appropriate color, dry, warm. No cyanosis, erythema, jaundice or rash Neurologic: space planner II-XII intact. Fully oriented, alert. Appropriate mood/affect. Motor strength 5/5. No appreciable EOM palsy, facial droop or sensory deficit. Past History - Past Medical History Allergies/Adverse Reactions: Allergies Allergy/AdvReac Type Severity Reaction Status Date / Time No Known Allergies Allergy Verified 06/09/19 22:32 Home Medications: Ambulatory Orders Ergocalciferol [Vitamin D2] 50,000 unit PO WEEKLY 01/12/18 Ferrous Sulfate [Feosol] 325 mg PO DAILY 01/12/18 Albuterol Sulfate Inhaler - [Ventolin HFA Inhaler -] 1 - 2 inh PO Q4H #1 inhaler 07/25/18 Ibuprofen [Motrin -] 600 mg PO QID #28 tablet 04/17/19 Clindamycin [Cleocin -] 300 mg PO Q6HPO #28 capsule 06/09/19 Fluticasone Furoate [Flonase Sensimist] 15.8 ml NS BID #1 spray.susp 06/09/19 Oxycodone HCl/Acetaminophen [Percocet 5-325 mg Tablet] 1 tab PO Q6H #20 tablet MDD 6 06/09/19 Pseudoephedrine HCl [Sudafed] 60 mg PO QID #30 tablet 06/09/19 Anemia: Yes Asthma: No Cancer: No Cardiac Disorders: No CVA: No COPD: No CHF: No Dementia: No Diabetes: No GI Disorders: No Disorders: No HTN: No Hypercholesterolemia: No Liver Disease: No Seizures: No Thyroid Disease: No - Psycho Social/Smoking Cessation Hx Smoking History: Never smoked Have you smoked in the past 12 months: No Hx Alcohol Use: No Drug/Substance Use Hx: No Substance Use Type: None Hx Substance Use Treatment: No *Physical Exam - Vital Signs Last Vital Signs Temp Pulse Resp BP Pulse Ox 98.2 F 67 20 155/83 100 06/09/19 21:08 06/09/19 21:08 06/09/19 21:08 06/09/19 21:08 06/09/19 21:08 ED Treatment Course - LABORATORY CBC & Chemistry Diagram: 06/09/19 22:15 06/09/19 22:15 Medical Decision Making - Medical Decision Making 06/09/19 21:38 49 yo F with hx of migraines and uterine fibroids (s/p hysterectomy) presents to fast track with tooth pain. -dental block performed -clindamycin Patient with minimal relief after dental block. Continues to complain of pain to "bones of the face." Concern for complication of odontogenic infection, will do head/facial bone CT. Case discussed in detail with ER provider DINAH Gomez including history, physical exam and ancillary studies. In brief, this patient is being seen in the ED for a chief complaint of: dental pain, facial bone pain I have completed the initial assessment interview note and have ordered the following labs: CBC, CMP, head/facial CT I have reviewed the following results: nothing Pending results: labs, CT Plan for disposition as follows: pending Oncoming DINAH Gomez has assumed care for the patient and will complete the evaluation and treatment. Discharge - Discharge Information Problems reviewed: Yes Clinical Impression/Diagnosis: Pain, dental Sinusitis Qualifiers: Sinusitis location: maxillary Chronicity: acute Recurrence: non-recurrent Qualified Code(s): J01.00 - Acute maxillary sinusitis, unspecified Condition: Stable Disposition: HOME - Admission No - Additional Discharge Information Prescriptions: Clindamycin [Cleocin -] 300 mg PO Q6HPO #28 capsule Fluticasone Furoate [Flonase Sensimist] 15.8 ml NS BID #1 spray.susp Oxycodone HCl/Acetaminophen [Percocet 5-325 mg Tablet] 1 tab PO Q6H #20 tablet MDD 6 Pseudoephedrine HCl [Sudafed] 60 mg PO QID #30 tablet - Follow up/Referral Referrals: Oy[place]ola,Mobolaji, COURTROOM CLERK [Primary Care Provider] - Tony Moore MD [Staff Physician] - - Patient Discharge Instructions Patient Printed Discharge Instructions: DI for Dental Pain Additional Instructions: Your Discharge Instructions: You must call primary care physician within 24 hours to arrange follow-up. Return to the Emergency Department with any new, persistent or worsening symptoms, for fever, chills, SOB, dizziness or any other concerning changes that may occur. You must follow-up with ENT for further treatment and evaluation. - Post Discharge Activity
[2019-06-09 21:14] VITALS: BMI 31.1
[2019-06-09] MEDS ORDERED: LIDOCAINE HCL 1%, 10 MG/ML (50 mL VIAL) SQ ONE (21:37)
[2019-06-09] MEDS ORDERED: LIDOCAINE HCL 1%, 10 MG/ML (20ML VIAL) ONE (21:38)
[2019-06-09] MEDS ORDERED: CLINDAMYCIN HCL 300 MG CAPSULE PO ONE (21:41)
[2019-06-09] MEDS ORDERED: CLINDAMYCIN HCL 150 MG CAPSULE (FP) ONE (21:43)
[2019-06-09 22:27] LABS: BASO % 1.1 % (0-2.0); EOS % 3.1 % (0-4.5); HEMATOCRIT 41.3 % (32.4-45.2); HEMOGLOBIN 13.1 GM/dL (10.7-15.3); LYMPH % 46.5 % (8-40); MCH 25.2 pg (25.7-33.7); MCHC 31.9 g/dl (32.0-36.0); MEAN PLT VOLUME 6.8 fl (7.5-11.1); MONO % 9.3 % (3.8-10.2); PLATELET COUNT 422 K/MM3 (134-434); RBC 5.22 M/mm3 (3.60-5.2); RDW 15.8 % (11.6-15.6); WHITE BLOOD COUNT 5.3 K/mm3 (4.0-10.0)
[2019-06-09 22:55] LABS: ALBUMIN 3.9 g/dl (3.4-5.0); BILIRUBIN,TOTAL 0.3 mg/dL (0.2-1); BLOOD UREA NITROGEN 12.9 mg/dL (7-18); CREATININE 0.7 mg/dL (0.55-1.3); POTASSIUM 4.3 mmol/L (3.5-5.1); TOT PROT 6.8 g/dl (6.4-8.2)
[2019-06-09] MEDS ORDERED: KETOROLAC TROMETHAMINE 30 MG/1 ML VIAL IM ONE (22:56)
[2019-06-09] MEDS ORDERED: KETOROLAC TROMETHAMINE 30 MG/1 ML VIAL ONE ×2 (23:09→23:12)
--- NOTE | 2019-06-09 23:17 | PDOC ---
*Physical Exam - Vital Signs Last Vital Signs Temp Pulse Resp BP Pulse Ox 98.2 F 67 20 155/83 100 06/09/19 21:08 06/09/19 21:08 06/09/19 21:08 06/09/19 21:08 06/09/19 21:08 ED Treatment Course - LABORATORY CBC & Chemistry Diagram: 06/09/19 22:15 06/09/19 22:15 - ADDITIONAL ORDERS Additional order review: Laboratory Results 06/09/19 22:15 Sodium 140 Potassium 4.3 Chloride 106 Carbon Dioxide 28 Anion Gap 6 L BUN 12.9 Creatinine 0.7 Est GFR (CKD-EPI)AfAm 119.58 Est GFR (CKD-EPI)NonAf 103.18 Random Glucose 95 Calcium 9.0 Total Bilirubin 0.3 AST 15 ALT 17 Alkaline Phosphatase 67 Total Protein 6.8 Albumin 3.9 06/09/19 22:15 RBC 5.22 H MCV 79.0 L MCHC 31.9 L RDW 15.8 H MPV 6.8 L Neutrophils % 40.0 L D Lymphocytes % 46.5 H D Monocytes % 9.3 Eosinophils % 3.1 Basophils % 1.1 - Medications Given in the ED: ED Medications Discontinued Medications Generic Name Dose Route Start Last Admin Trade Name Freq PRN Reason Stop Dose Admin Clindamycin HCl 300 mg 06/09/19 21:41 06/09/19 21:46 Cleocin - PO 06/09/19 21:42 300 mg ONCE ONE Administration Lidocaine HCl 2 ml 06/09/19 21:37 06/09/19 21:40 Xylocaine 1% SQ 06/09/19 21:38 2 ml ONCE ONE Administration Medical Decision Making - Medical Decision Making Patient endorsed to me to follow CT scan. Patient is still complaining of pain despite getting a dental block will give Toradol 30 mg IM and Percocet 1 tab p.o. 06/09/19 23:15 Patient Full Name: JOHN EVERETT Patient Accession No: [id number] Patient : 1970 Reason for Exam: moody Referring Physician: MIGUELANGEL KAUFMAN Patient Name: OLIVER LOPEZ THIS IS A PRELIMINARY REPORT FROM [facility] DATE OF SERVICE: 2019-06-09 22:16:16 IMAGES: [id number] Exam: CT head without IV contrast. Clinical indication:Headache. Comparison:None available. Technique: Axial unenhanced CT images from the skull base through the brain were obtained followed by coronal and sagital reformats. Findings: The visualized bony structures are unremarkable. There is some sequential mucosal thickening involving the bilateral maxillary sinuses suggesting chronic sinusitis. Otherwise, the visualized paranasal sinuses and mastoid air cells are clear. There is no evidence of intra-or extra-axial hemorrhage. The ventricles and basilar cisterns are unremarkable. There is no evidence of intracranial mass, acute infarct, or midline shift. Impression: 1. Negative unenhanced CT of the brain. 2. Findings suggest chronic bilateral maxillary sinusitis. One or more of the following dose reduction techniques were used: automated exposure control, adjustment of the mA and/or kV according to patient size, use of iterative reconstructive technique. THIS DOCUMENT HAS BEEN ELECTRONICALLY SIGNED Jair Dominguze MD 06/09/2019 22:54 TOPPIECE CHOPPER M.D. Please call [facility] [phone]) with questions. INTERPRETING RADIOLOGIST: Jair Dominguez MD Electronically Signed: Jun 09, 2019 10:55PM EDT Patient Full Name: JOHN EVERETT Patient Accession No: [id number] Patient : 1970 Reason for Exam: facial pain Referring Physician: MIGUELANGEL KAUFMAN Patient Name: OLIVER LOPEZ THIS IS A PRELIMINARY REPORT FROM [facility] DATE OF SERVICE: 2019-06-09 22:18:28 IMAGES: [id number] Exam: CT facial bones without IV contrast. Clinical indication: Facial pain. Technique: Axial CT images of the facial bones were obtained followed by coronal and sagittal reformats. Findings: The mandible is intact. Temporomandibular joints are appropriately situated. The maxilla is intact. The orbital rims are intact. The bilateral zygomatic arches are intact. The nasal bones are intact. Visualized portions of the cranial skull and cervical spine are intact. There is some circumference of mucosal thickening involving the bilateral maxillary sinuses suggesting chronic sinusitis. Visualized paranasal sinuses and mastoid air cells are clear. The bilateral orbits and globes are within normal limits. The soft tissues within the facial region are within normal limits. The bilateral parotid and submental glands are within normal limits. There are no enlarged lymph nodes within the [id number], by size criteria. Impression: 1. No acute facial bone fracture. 2. Chronic bilateral maxillary sinusitis. One or more of the following dose reduction techniques were used: automated exposure control, adjustment of the mA and/or kV according to patient size, use of iterative reconstructive technique. THIS DOCUMENT HAS BEEN ELECTRONICALLY SIGNED Jair Dominguez MD 06/09/2019 22:52 TOPPIECE CHOPPER M.D. Please call [facility] [phone]) with questions. INTERPRETING RADIOLOGIST: Jair Dominguez MD Electronically Signed: Jun 09, 2019 10:53PM EDT CT scan reviewed noted to have sinusitis will discharge with treatment with Flonase and pain meds. Patient was already prescribed clindamycin and will continue her with this treatment. I discussed the physical exam findings, ancillary test results and final diagnoses with the patient. I answered all of the patient's questions. The patient was satisfied with the care received and felt comfortable with the discharge plan and treatment plan. The Patient agrees to follow up with the primary care physician within 24-72 hours. Discharge - Discharge Information Problems reviewed: Yes Clinical Impression/Diagnosis: Pain, dental Sinusitis Qualifiers: Sinusitis location: maxillary Chronicity: acute Recurrence: non-recurrent Qualified Code(s): J01.00 - Acute maxillary sinusitis, unspecified Condition: Stable Disposition: HOME - Additional Discharge Information Prescriptions: Clindamycin [Cleocin -] 300 mg PO Q6HPO #28 capsule Fluticasone Furoate [Flonase Sensimist] 15.8 ml NS BID #1 spray.susp Oxycodone HCl/Acetaminophen [Percocet 5-325 mg Tablet] 1 tab PO Q6H #20 tablet MDD 6 Pseudoephedrine HCl [Sudafed] 60 mg PO QID #30 tablet - Follow up/Referral Referrals: Chirag Waller FNP [Primary Care Provider] - Tony Moore MD [Staff Physician] - - Patient Discharge Instructions Patient Printed Discharge Instructions: DI for Dental Pain Additional Instructions: Your Discharge Instructions: You must call primary care physician within 24 hours to arrange follow-up. Return to the Emergency Department with any new, persistent or worsening symptoms, for fever, chills, SOB, dizziness or any other concerning changes that may occur. You must follow-up with ENT for further treatment and evaluation. - Post Discharge Activity
[2019-06-09] MEDS ORDERED: PSEUDOEPHEDRINE HCL 60 MG TABLET PO ONE (23:46)
[2019-06-09] MEDS ORDERED: PSEUDOEPHEDRINE HCL 60 MG TABLET ONE (23:54)
[2019-06-10 00:11] VITALS: BP 139/79; PULSE 62; TEMP 97.9
== END 2019-06-10 00:07 | disposition home or self-care (01) ==
LOC: JER 20:57 → JERFT 20:57 → JER 06-10 00:07
PROC: 3E0233Z Introduction of Anti-inflammatory into Muscle, Percutaneous Approach (ICD-10-PCS; principal; 2019-06-09)
PROC: 3E00XBZ Introduction of Anesthetic Agent into Skin and Mucous Membranes, External Approach (ICD-10-PCS; 2019-06-09)
DX: K08.89 Other specified disorders of teeth and supporting structures (principal); D64.9 Anemia, unspecified; Z87.42 Personal history of other diseases of the female genital tract; Z90.79 Acquired absence of other genital organ(s)
CPT/HCPCS: 36415; 70450-TC; 70486-TC; 80053; 85025; 96372; 99282-25

== ENCOUNTER 2020-07-20 17:18 | Emergency (ER) | payer OTHER ==
[2020-07-20 17:31] VITALS: BP 131/91; PULSE 93; BMI 36.6
[2020-07-20 17:32] VITALS: TEMP 96.9
[2020-07-20] MEDS ORDERED: TETANUS AND DIPHTHERIA TOXOID 0.5 ML DISP.SYRIN IM ONE (17:55)
[2020-07-20] MEDS ORDERED: DIPHTH,PERTUSS(ACELL),TET 0.5 ML DISP.SYRIN IM ONE (18:12)
[2020-07-20] MEDS ORDERED: KETOROLAC TROMETHAMINE 30 MG/1 ML VIAL IM ONE (18:55)
[2020-07-20] MEDS ORDERED: LIDOCAINE HCL 1%, 10 MG/ML (50 mL VIAL) SQ ONE (18:57)
[2020-07-20] MEDS ORDERED: LIDOCAINE HCL 1%, 10 MG/ML (20ML VIAL) ONE (18:58)
[2020-07-20] MEDS ORDERED: KETOROLAC TROMETHAMINE 30 MG/1 ML VIAL ONE (18:58)
[2020-07-20] MEDS ORDERED: CEPHALEXIN MONOHYDRATE 500 MG CAPSULE (UD) PO ONE (20:59)
[2020-07-20] MEDS ORDERED: CEPHALEXIN MONOHYDRATE 500 MG CAPSULE (UD) ONE (21:07)
== END 2020-07-20 21:15 | disposition home or self-care (01) ==
LOC: JERFT 17:18
PROC: 0HQHXZZ Repair Right Upper Leg Skin, External Approach (ICD-10-PCS; principal; 2020-07-20)
PROC: 3E0234Z Introduction of Serum, Toxoid and Vaccine into Muscle, Percutaneous Approach (ICD-10-PCS; 2020-07-20)
PROC: 3E0233Z Introduction of Anti-inflammatory into Muscle, Percutaneous Approach (ICD-10-PCS; 2020-07-20)
DX: S81.011A Laceration without foreign body, right knee, initial encounter (principal)
CPT/HCPCS: 73560-TC-RT-FY; 73562-TC-RT-FY; 99285-25

== ENCOUNTER 2020-08-30 12:11 | Emergency (ER) | payer OTHER ==
[2020-08-30 12:23] VITALS: BMI 35.4
[2020-08-30] MEDS ORDERED: SODIUM CHLORIDE 0.9% 500 ML INFUS.BAG IV ONE (14:39)
[2020-08-30] MEDS ORDERED: ONDANSETRON 4 MG/2 ML VIAL IVPUSH ONE (14:39)
[2020-08-30] MEDS ORDERED: ONDANSETRON 4 MG/2 ML VIAL ONE (14:47)
[2020-08-30 15:16] LABS: BASO % 0.6 % (0-2.0); HEMATOCRIT 44.5 % (32.4-45.2); HEMOGLOBIN 14.8 GM/dL (10.7-15.3); LYMPH % 42.4 % (8-40); MCH 26.2 pg (25.7-33.7); MCHC 33.2 g/dl (32.0-36.0); MEAN CELL VOLUME 78.9 fl (80-96); MEAN PLT VOLUME 6.7 fl (7.5-11.1); MONO % 11.9 % (3.8-10.2); NEUT % 44.1 % (42.8-82.8); PLATELET COUNT 356 K/MM3 (134-434); RBC 5.64 M/mm3 (3.60-5.2); RDW 15.6 % (11.6-15.6); WHITE BLOOD COUNT 3.9 K/mm3 (4.0-10.0)
[2020-08-30 15:37] LABS: ALBUMIN 4.1 g/dl (3.4-5.0); BLOOD UREA NITROGEN 7.5 mg/dL (7-18)
[2020-08-30 15:40] LABS: CREATININE 0.8 mg/dL (0.55-1.3)
[2020-08-30 15:41] LABS: BILIRUBIN,TOTAL 0.2 mg/dL (0.2-1); TOT PROT 8.1 g/dl (6.4-8.2)
[2020-08-30 16:01] LABS: PH,URINE 6.5 (5.0-8.0); URINE APPEARANCE CLEAR; URINE BILIRUBIN NEGATIVE (NEGATIVE); URINE COLOR YELLOW; URINE GLUCOSE (UA) NEGATIVE (NEGATIVE); URINE KETONE NEGATIVE (NEGATIVE); URINE LEUK ESTERASE NEGATIVE (NEGATIVE); URINE NITRITE NEGATIVE (NEGATIVE); URINE PROTEIN NEGATIVE (NEGATIVE); URINE UROBILINOGEN 0.2 mg/dL (0.2-1.0)
[2020-08-30] MEDS ORDERED: KETOROLAC TROMETHAMINE 30 MG/1 ML VIAL IVPUSH ONE (16:37)
[2020-08-30] MEDS ORDERED: KETOROLAC TROMETHAMINE 30 MG/1 ML VIAL ONE (16:54)
[2020-08-30 18:13] VITALS: BP 133/85; PULSE 92; TEMP 98.6
== END 2020-08-30 17:40 | disposition home or self-care (01) ==
LOC: JER 12:11
PROC: 3E0333Z Introduction of Anti-inflammatory into Peripheral Vein, Percutaneous Approach (ICD-10-PCS; principal; 2020-08-30)
PROC: 3E033GC Introduction of Other Therapeutic Substance into Peripheral Vein, Percutaneous Approach (ICD-10-PCS; 2020-08-30)
DX: U07.1 COVID-19 (principal); R10.9 Unspecified abdominal pain
CPT/HCPCS: 36415; 71046-TC-FY; 80053; 81003; 83690; 85025; 87086; 87426; 93005; 93010; 99285-25

== ENCOUNTER 2021-12-15 14:56 | Emergency (ER) | payer OTHER ==
[2021-12-15 15:17] VITALS: BMI 29.0
[2021-12-15] MEDS ORDERED: ACETAMINOPHEN 500 MG TABLET (FP) PO ONE (15:36)
[2021-12-15] MEDS ORDERED: SODIUM CHLORIDE 1,000 ML IV STA (16:40)
[2021-12-15 17:57] VITALS: BP 134/78; PULSE 106; TEMP 100.1
[2021-12-16 12:08] LABS: SARS-CoV-2 NAA Not Detected (Not Detected)
== END 2021-12-15 17:59 | disposition home or self-care (01) ==
LOC: JER 14:56
PROC: 3E0337Z Introduction of Electrolytic and Water Balance Substance into Peripheral Vein, Percutaneous Approach (ICD-10-PCS; principal; 2021-12-15)
DX: J09.X1 Influenza due to identified novel influenza A virus with pneumonia (principal); J18.9 Pneumonia, unspecified organism; J06.9 Acute upper respiratory infection, unspecified
CPT/HCPCS: 71046-TC-FY; 87804; 96360; 99284-25; C9803-CS; U0003; U0005

== ENCOUNTER 2022-01-30 15:02 | Emergency (ER) | payer OTHER ==
[2022-01-30 15:24] VITALS: BP 132/86; PULSE 77; BMI 32.3
[2022-01-30] MEDS ORDERED: KETOROLAC TROMETHAMINE 30 MG/1 ML VIAL IM ONE (16:48)
[2022-01-30] MEDS ORDERED: KETOROLAC TROMETHAMINE 30 MG/1 ML VIAL ONE (17:18)
== END 2022-01-30 17:22 | disposition home or self-care (01) ==
LOC: JERFT 15:02
PROC: 3E0233Z Introduction of Anti-inflammatory into Muscle, Percutaneous Approach (ICD-10-PCS; principal; 2022-01-30)
DX: K08.89 Other specified disorders of teeth and supporting structures (principal)
CPT/HCPCS: 99284-25

== ENCOUNTER 2022-03-22 13:27 | Emergency (ER) | payer OTHER ==
[2022-03-22 13:55] VITALS: BP 126/83; PULSE 126; RESP 16; TEMP 98.5; BMI 27.2
[2022-03-22] MEDS ORDERED: FAMOTIDINE 20 MG/50 ML IVPB 20 MG/50 ML MG IVPB ONE ×2 (15:07→15:18)
[2022-03-22] MEDS ORDERED: SODIUM CHLORIDE 0.9% 500 ML INFUS.BAG IV ONE (15:07)
[2022-03-22] MEDS ORDERED: KETOROLAC TROMETHAMINE 30 MG/1 ML VIAL IVPB ONE (15:07)
[2022-03-22] MEDS ORDERED: MAG HYDROX/AL HYDROX/SIMETH 30 ML UNIT-DOSE CUP PO ONE (15:08)
[2022-03-22] MEDS ORDERED: LIDOCAINE 5% TOPICAL PATCH TP ONE (15:15)
[2022-03-22] MEDS ORDERED: MAG HYDROX/AL HYDROX/SIMETH 30 ML UNIT-DOSE CUP ONE (15:18)
[2022-03-22] MEDS ORDERED: LIDOCAINE 5% TOPICAL PATCH ONE (15:18)
[2022-03-22] MEDS ORDERED: KETOROLAC TROMETHAMINE 30 MG/1 ML VIAL ONE (15:18)
[2022-03-22 16:47] LABS: BASO % 0.3 % (0-2.0); EOS % 3.6 % (0-4.5); HEMATOCRIT 42.5 % (32.4-45.2); HEMOGLOBIN 13.9 GM/dL (10.7-15.3); LYMPH % 52.7 % (8-40); MCH 25.4 pg (25.7-33.7); MCHC 32.6 g/dl (32.0-36.0); MEAN CELL VOLUME 77.8 fl (80-96); MEAN PLT VOLUME 6.8 fl (7.5-11.1); MONO % 13.8 % (3.8-10.2); NEUT % 29.6 % (42.8-82.8); PLATELET COUNT 334 10^3/uL (134-434); RBC 5.46 M/mm3 (3.60-5.2); RDW 15.2 % (11.6-15.6); WHITE BLOOD COUNT 5.2 K/mm3 (4.0-10.0)
[2022-03-22 16:48] LABS: URINE APPEARANCE CLEAR; URINE BILIRUBIN NEGATIVE (NEGATIVE); URINE COLOR YELLOW; URINE GLUCOSE (UA) NEGATIVE (NEGATIVE); URINE KETONE NEGATIVE (NEGATIVE); URINE LEUK ESTERASE NEGATIVE (NEGATIVE); URINE NITRITE NEGATIVE (NEGATIVE); URINE PROTEIN NEGATIVE (NEGATIVE); URINE UROBILINOGEN 0.2 mg/dL (0.2-1.0)
[2022-03-22 17:15] LABS: ANISOCYTOSIS 1+; CALCIUM 9.4 mg/dL (8.5-10.1); MACROCYTOSIS 0
[2022-03-22 17:16] LABS: BLOOD UREA NITROGEN 11.7 mg/dL (7-18)
[2022-03-22 17:19] LABS: CREATININE 0.5 mg/dL (0.55-1.3)
[2022-03-22 17:21] LABS: BILIRUBIN,TOTAL 0.5 mg/dL (0.2-1); TOT PROT 7.6 g/dl (6.4-8.2)
[2022-03-22] MEDS ORDERED: morphine CARPU-JECT 4 MG/1 ML DISP.SYRIN IVPUSH ONE (18:13)
[2022-03-22] MEDS ORDERED: morphine SULFATE 4 MG/ML VIAL ONE (18:58)
[2022-03-22] MEDS ORDERED: LIDOCAINE PATCH REMOVAL MC SCH (22:00)
== END 2022-03-22 20:48 | disposition home or self-care (01) ==
LOC: JER 13:27
PROC: 3E033GC Introduction of Other Therapeutic Substance into Peripheral Vein, Percutaneous Approach (ICD-10-PCS; principal; 2022-03-22)
DX: M54.42 Lumbago with sciatica, left side (principal)
CPT/HCPCS: 36415; 72100-TC-FY; 80053; 81003; 85025; 87086; 99284-25

== ENCOUNTER 2022-06-20 12:27 | Emergency (ER) | payer OTHER ==
[2022-06-20 12:42] VITALS: BP 121/85; PULSE 83; RESP 18; TEMP 98.2; BMI 30.7
[2022-06-20] MEDS ORDERED: ALBUTEROL SO4 2.5/IPRATROPIUM 0.5 INH SOL 3 ML VIAL.NEB. NEB ONE ×2 (13:25→13:29)
[2022-06-20] MEDS ORDERED: predniSONE 20 MG TABLET (UD) PO ONE (13:25)
[2022-06-20] MEDS ORDERED: KETOROLAC TROMETHAMINE 30 MG/1 ML VIAL IM ONE (13:26)
[2022-06-20] MEDS ORDERED: KETOROLAC TROMETHAMINE 30 MG/1 ML VIAL ONE (13:30)
[2022-06-20] MEDS ORDERED: predniSONE 20 MG TABLET (UD) ONE (13:30)
[2022-06-20] MEDS ORDERED: AZITHROMYCIN 250 MG TABLET PO ONE (14:59)
[2022-06-20] MEDS ORDERED: AZITHROMYCIN 250 MG TABLET ONE (15:08)
== END 2022-06-20 15:59 | disposition home or self-care (01) ==
LOC: JER 12:27 → JERFT 12:27
PROC: 3E0233Z Introduction of Anti-inflammatory into Muscle, Percutaneous Approach (ICD-10-PCS; principal; 2022-06-20)
PROC: 3E0F7GC Introduction of Other Therapeutic Substance into Respiratory Tract, Via Natural or Artificial Opening (ICD-10-PCS; 2022-06-20)
DX: R05.1 Acute cough (principal); J45.901 Unspecified asthma with (acute) exacerbation
CPT/HCPCS: 0241U-QW; 71046-TC-FY; 99284-25

== ENCOUNTER 2022-10-14 15:19 | Observation (INO) | payer OTHER ==
[2022-10-14] MEDS ORDERED: ALBUTEROL SO4 2.5/IPRATROPIUM 0.5 INH SOL 3 ML VIAL.NEB. NEB ONE ×3 (16:35→16:57)
[2022-10-14] MEDS ORDERED: methylPREDNISolone NA SUCC 125 MG/2 ML VIAL IVPUSH ONE (16:35)
[2022-10-14] MEDS ORDERED: guaiFENesin 200 MG/10 ML 10 ML UNIT-DOSE CUPS PO ONE (16:50)
[2022-10-14] MEDS ORDERED: LIDOCAINE 5% TOPICAL PATCH TP ONE (16:50)
[2022-10-14] MEDS ORDERED: KETOROLAC TROMETHAMINE 15 MG/ML VIAL IVPUSH ONE (16:52)
[2022-10-14] MEDS ORDERED: MAGNESIUM SULF 50% (8.12 MEQ/2 ML-1 GM VIAL) IVPB ONE (16:52)
[2022-10-14] MEDS ORDERED: methylPREDNISolone NA SUCC 125 MG/2 ML VIAL ONE (16:57)
[2022-10-14] MEDS ORDERED: LIDOCAINE 5% TOPICAL PATCH ONE (16:57)
[2022-10-14] MEDS ORDERED: MAGNESIUM 1GM/D5W - 1 GM/100 ML IVPB IVPB ONE (16:57)
[2022-10-14] MEDS ORDERED: KETOROLAC TROMETHAMINE 15 MG/ML VIAL ONE (16:57)
[2022-10-14] MEDS ORDERED: guaiFENesin 200 MG/10 ML 10 ML UNIT-DOSE CUPS ONE (16:57)
[2022-10-14 18:00] LABS: BASO % 1.1 % (0-2.0); EOS % 13.4 % (0-4.5); HEMATOCRIT 40.8 % (32.4-45.2); HEMOGLOBIN 13.6 GM/dL (10.7-15.3); LYMPH % 43.7 % (8-40); MCH 25.6 pg (25.7-33.7); MCHC 33.5 g/dl (32.0-36.0); MEAN CELL VOLUME 76.6 fl (80-96); MEAN PLT VOLUME 7.1 fl (7.5-11.1); MONO % 6.6 % (3.8-10.2); NEUT % 35.2 % (42.8-82.8); PLATELET COUNT 371 10^3/uL (134-434); RBC 5.33 M/mm3 (3.60-5.2); RDW 14.7 % (11.6-15.6); WHITE BLOOD COUNT 5.5 K/mm3 (4.0-10.0)
[2022-10-14 18:15] LABS: INR 1.1 (0.83-1.09); PROTHROMBIN TIME (PATIENT) 12.7 SEC (9.7-13.0)
[2022-10-14 18:18] LABS: ACTIVATED PTT 30.2 SECONDS (25.2-36.5)
[2022-10-14 18:22] LABS: PH,URINE 6.5 (5.0-8.0); URINE APPEARANCE CLEAR; URINE BILIRUBIN NEGATIVE (NEGATIVE); URINE COLOR YELLOW; URINE GLUCOSE (UA) NEGATIVE (NEGATIVE); URINE KETONE TRACE (NEGATIVE); URINE LEUK ESTERASE NEGATIVE (NEGATIVE); URINE NITRITE NEGATIVE (NEGATIVE); URINE PROTEIN NEGATIVE (NEGATIVE)
[2022-10-14] MEDS ORDERED: SODIUM CHLORIDE 0.9% 1000 ML INFUS.BAG IV ONE (18:32)
[2022-10-14 18:33] LABS: CALCIUM 9.5 mg/dL (8.5-10.1)
[2022-10-14 18:34] LABS: ALBUMIN 3.8 g/dl (3.4-5.0); BLOOD UREA NITROGEN 17.5 mg/dL (7-18)
[2022-10-14 18:37] LABS: CREATININE 0.5 mg/dL (0.55-1.3)
[2022-10-14 18:39] LABS: BILIRUBIN,TOTAL 0.4 mg/dL (0.2-1); TOT PROT 7.4 g/dl (6.4-8.2)
[2022-10-14] MEDS ORDERED: ALBUTEROL SO4 0.083% IH SOL 2.5 MG/3 ML VIAL.NEB. NEB ONE ×4 (19:17→20:55)
[2022-10-14] MEDS ORDERED: AZITHROMYCIN IVPB 500 MG in DEXTROSE 5%-WATER - 250 ML IVPB ONE (20:29)
[2022-10-14] MEDS ORDERED: LIDOCAINE PATCH REMOVAL MC SCH (22:00)
[2022-10-14] MEDS ORDERED: AZITHROMYCIN IVPB 500 MG/250 ML BAG IVPB ONE (22:55)
[2022-10-15] MEDS ORDERED: methylPREDNISolone NA SUCC 40 MG/1 ML VIAL ONE ×2 (02:43→07:35)
[2022-10-15] MEDS: BUDESONIDE/FORMETEROL FUMARATE 160/4.5 mcg INHALER IH SCH ×3 (03:03→21:54)
[2022-10-15] MEDS: methylPREDNISolone NA SUCC 40 MG/1 ML VIAL IVPUSH SCH ×3 (03:03→17:05)
[2022-10-15] MEDS: guaiFENesin/D-M SUGAR-FREE/ACLHOL-FREE (200 MG/10 MG) 5 ML PO PRN ×2 (03:04→10:24)
[2022-10-15] MEDS ORDERED: ALBUTEROL SO4 2.5/IPRATROPIUM 0.5 INH SOL 3 ML VIAL.NEB. NEB ONE ×2 (04:47→07:34)
[2022-10-15] MEDS: ALBUTEROL SO4 2.5/IPRATROPIUM 0.5 INH SOL 3 ML VIAL.NEB. NEB SCH ×4 (04:52→20:04)
[2022-10-15 06:40] LABS: HEMATOCRIT 40.4 % (32.4-45.2); MCH 25.2 pg (25.7-33.7); MCHC 32.3 g/dl (32.0-36.0); MEAN CELL VOLUME 77.9 fl (80-96); MEAN PLT VOLUME 7.1 fl (7.5-11.1); PLATELET COUNT 352 10^3/uL (134-434); RBC 5.18 M/mm3 (3.60-5.2); RDW 14.7 % (11.6-15.6); WHITE BLOOD COUNT 6.6 K/mm3 (4.0-10.0)
[2022-10-15 06:59] LABS: CALCIUM 9.4 mg/dL (8.5-10.1)
[2022-10-15 07:00] LABS: ALBUMIN 3.9 g/dl (3.4-5.0); BLOOD UREA NITROGEN 13.9 mg/dL (7-18); MAGNESIUM 2.1 mg/dL (1.8-2.4)
[2022-10-15] MEDS ORDERED: LEVOTHYROXINE NA 75 MCG TABLET (FP) PO SCH (07:00)
[2022-10-15 07:03] LABS: CREATININE 0.6 mg/dL (0.55-1.3); PHOSPHOROUS 3.3 mg/dL (2.5-4.9)
[2022-10-15 07:04] LABS: BILIRUBIN,TOTAL 0.2 mg/dL (0.2-1); TOT PROT 7.4 g/dl (6.4-8.2)
[2022-10-15] MEDS ORDERED: ENOXAPARIN NA (PORCINE) 40 MG/0.4 ML DISP.SYRIN SQ ONE (07:35)
[2022-10-15] MEDS ORDERED: LEVOTHYROXINE NA 75 MCG TABLET (FP) ONE (07:35)
[2022-10-15] MEDS ORDERED: ENOXAPARIN NA (PORCINE) 40 MG/0.4 ML DISP.SYRIN SQ SCH (10:00)
[2022-10-15] MEDS ORDERED: amLODIPine BESYLATE 10 MG TABLET (FP) PO SCH (10:00)
[2022-10-15] MEDS ORDERED: LISINOPRIL 20 MG TABLET PO SCH (10:00)
[2022-10-15] MEDS ORDERED: amLODIPine BESYLATE 10 MG TABLET (FP) ONE (10:03)
[2022-10-15] MEDS ORDERED: IBUPROFEN 400 MG TABLET (FP) PO PRN (10:59)
[2022-10-15] MEDS: PANTOPRAZOLE SODIUM 40 MG VIAL IVPUSH SCH (13:16)
[2022-10-15 13:39] VITALS: BMI 33.8
[2022-10-15] MEDS: LOSARTAN POTASSIUM 50 MG TABLET PO SCH (14:05)
[2022-10-15] MEDS: MONTELUKAST NA 10 MG TABLET PO SCH (21:53)
[2022-10-15] MEDS ORDERED: LIDOCAINE PATCH REMOVAL MC SCH (22:00)
[2022-10-15] MEDS ORDERED: MONTELUKAST NA 10 MG TABLET PO SCH (22:00)
[2022-10-16] MEDS: ACETAMINOPHEN 325 MG TABLET (FP) PO PRN (00:05)
[2022-10-16] MEDS: ALBUTEROL SO4 2.5/IPRATROPIUM 0.5 INH SOL 3 ML VIAL.NEB. NEB SCH ×6 (00:18→20:00)
[2022-10-16] MEDS: methylPREDNISolone NA SUCC 40 MG/1 ML VIAL IVPUSH SCH ×3 (02:14→17:22)
[2022-10-16] MEDS: LEVOTHYROXINE NA 75 MCG TABLET (FP) PO SCH (06:53)
[2022-10-16 08:55] LABS: HEMATOCRIT 39.5 % (32.4-45.2); HEMOGLOBIN 12.5 GM/dL (10.7-15.3); MCH 24.5 pg (25.7-33.7); MCHC 31.6 g/dl (32.0-36.0); MEAN CELL VOLUME 77.6 fl (80-96); MEAN PLT VOLUME 7.5 fl (7.5-11.1); PLATELET COUNT 381 10^3/uL (134-434); RBC 5.09 M/mm3 (3.60-5.2); WHITE BLOOD COUNT 15.3 K/mm3 (4.0-10.0)
[2022-10-16 09:13] LABS: CALCIUM 9.3 mg/dL (8.5-10.1)
[2022-10-16 09:14] LABS: BLOOD UREA NITROGEN 17.3 mg/dL (7-18)
[2022-10-16 09:18] LABS: CREATININE 0.6 mg/dL (0.55-1.3)
[2022-10-16 09:31] LABS: ANISOCYTOSIS 0; MACROCYTOSIS 0
[2022-10-16] MEDS: amLODIPine BESYLATE 10 MG TABLET (FP) PO SCH (10:16)
[2022-10-16] MEDS: PANTOPRAZOLE SODIUM 40 MG VIAL IVPUSH SCH (10:16)
[2022-10-16] MEDS: LOSARTAN POTASSIUM 50 MG TABLET PO SCH (10:17)
[2022-10-16] MEDS: BUDESONIDE/FORMETEROL FUMARATE 160/4.5 mcg INHALER IH SCH ×2 (10:17→21:43)
[2022-10-16] MEDS: ENOXAPARIN NA (PORCINE) 40 MG/0.4 ML DISP.SYRIN SQ SCH (10:17)
[2022-10-16] MEDS ORDERED: AZITHROMYCIN IVPB 250 MG in DEXTROSE 5%-WATER - 250 ML IVPB SCH (14:00)
[2022-10-16] MEDS: guaiFENesin/D-M SUGAR-FREE/ACLHOL-FREE (200 MG/10 MG) 5 ML PO PRN ×2 (14:41→21:42)
[2022-10-16] MEDS: MONTELUKAST NA 10 MG TABLET PO SCH (21:40)
[2022-10-17] MEDS: ALBUTEROL SO4 2.5/IPRATROPIUM 0.5 INH SOL 3 ML VIAL.NEB. NEB SCH ×7 (00:05→23:48)
[2022-10-17] MEDS: methylPREDNISolone NA SUCC 40 MG/1 ML VIAL IVPUSH SCH ×3 (01:26→17:34)
[2022-10-17] MEDS: guaiFENesin/D-M SUGAR-FREE/ACLHOL-FREE (200 MG/10 MG) 5 ML PO PRN ×3 (05:32→21:42)
[2022-10-17] MEDS: ACETAMINOPHEN 325 MG TABLET (FP) PO PRN (05:34)
[2022-10-17] MEDS: LEVOTHYROXINE NA 75 MCG TABLET (FP) PO SCH (06:27)
[2022-10-17 09:13] LABS: HEMATOCRIT 40.2 % (32.4-45.2); HEMOGLOBIN 13.1 GM/dL (10.7-15.3); MCH 25.2 pg (25.7-33.7); MCHC 32.7 g/dl (32.0-36.0); MEAN CELL VOLUME 77.3 fl (80-96); MEAN PLT VOLUME 7.2 fl (7.5-11.1); PLATELET COUNT 403 10^3/uL (134-434); RDW 15.3 % (11.6-15.6)
[2022-10-17 09:25] LABS: BLOOD UREA NITROGEN 18.8 mg/dL (7-18); CALCIUM 9.2 mg/dL (8.5-10.1)
[2022-10-17 09:28] LABS: CREATININE 0.7 mg/dL (0.55-1.3)
[2022-10-17 09:30] LABS: BILIRUBIN,TOTAL 0.2 mg/dL (0.2-1); TOT PROT 7.7 g/dl (6.4-8.2)
[2022-10-17] MEDS ORDERED: BENZOCAINE/MENTH/CETYLPYRD CL 1 EACH LOZENGE MM PRN (09:46)
[2022-10-17] MEDS: ENOXAPARIN NA (PORCINE) 40 MG/0.4 ML DISP.SYRIN SQ SCH (10:24)
[2022-10-17] MEDS: BUDESONIDE/FORMETEROL FUMARATE 160/4.5 mcg INHALER IH SCH ×2 (10:24→21:44)
[2022-10-17] MEDS: PANTOPRAZOLE SODIUM 40 MG VIAL IVPUSH SCH (10:24)
[2022-10-17] MEDS: LOSARTAN POTASSIUM 50 MG TABLET PO SCH (10:24)
[2022-10-17] MEDS: amLODIPine BESYLATE 10 MG TABLET (FP) PO SCH (10:24)
[2022-10-17 10:48] LABS: ANISOCYTOSIS 0; MACROCYTOSIS 0
[2022-10-17] MEDS: MONTELUKAST NA 10 MG TABLET PO SCH (21:42)
[2022-10-18] MEDS: methylPREDNISolone NA SUCC 40 MG/1 ML VIAL IVPUSH SCH ×2 (01:20→09:53)
[2022-10-18] MEDS: ALBUTEROL SO4 2.5/IPRATROPIUM 0.5 INH SOL 3 ML VIAL.NEB. NEB SCH ×4 (05:00→15:39)
[2022-10-18 05:48] VITALS: RESP 20
[2022-10-18] MEDS: LEVOTHYROXINE NA 75 MCG TABLET (FP) PO SCH (06:41)
[2022-10-18] MEDS: ENOXAPARIN NA (PORCINE) 40 MG/0.4 ML DISP.SYRIN SQ SCH (09:53)
[2022-10-18] MEDS: amLODIPine BESYLATE 10 MG TABLET (FP) PO SCH (09:53)
[2022-10-18] MEDS: LOSARTAN POTASSIUM 50 MG TABLET PO SCH (09:53)
[2022-10-18] MEDS: PANTOPRAZOLE SODIUM 40 MG VIAL IVPUSH SCH (09:53)
[2022-10-18] MEDS: BUDESONIDE/FORMETEROL FUMARATE 160/4.5 mcg INHALER IH SCH (09:54)
[2022-10-18 10:17] LABS: HEMATOCRIT 42.7 % (32.4-45.2); HEMOGLOBIN 13.9 GM/dL (10.7-15.3); MCH 25.2 pg (25.7-33.7); MCHC 32.5 g/dl (32.0-36.0); MEAN CELL VOLUME 77.4 fl (80-96); MEAN PLT VOLUME 7.3 fl (7.5-11.1); PLATELET COUNT 419 10^3/uL (134-434); RBC 5.51 M/mm3 (3.60-5.2); RDW 15.2 % (11.6-15.6); WHITE BLOOD COUNT 19.8 K/mm3 (4.0-10.0)
[2022-10-18 10:41] LABS: ALBUMIN 4.1 g/dl (3.4-5.0); CALCIUM 9.3 mg/dL (8.5-10.1)
[2022-10-18 10:43] LABS: CREATININE 0.8 mg/dL (0.55-1.3)
[2022-10-18 10:45] LABS: BILIRUBIN,TOTAL 0.4 mg/dL (0.2-1); TOT PROT 7.9 g/dl (6.4-8.2)
[2022-10-18 11:29] LABS: ANISOCYTOSIS 0; HELMET CELLS 0; HOWELL-JOLLY BODIES 0; MACROCYTOSIS 0; OVALOCYTE 0; ROULEAU 0; SICKELED CELLS 0; TARGET CELLS 0; TEAR DROP CELLS 0; TOXIC GRANULATION 0
[2022-10-18 14:25] VITALS: BP 122/68; PULSE 86; TEMP 98.2
[2022-10-19] MEDS ORDERED: predniSONE 20 MG TABLET (UD) PO SCH (10:00)
== END 2022-10-18 17:31 | disposition home or self-care (01) ==
LOC: JER 15:19 → UNDOADMOB 20:43 → JERBED 20:43 → INTOOBSV 10-15 00:35 → OBSVTOIN 10-15 00:35 → JERBED 10-15 12:14 → J8W 10-15 12:14 → JERBED 10-15 14:46 → J8W 10-15 14:46
PROVIDERS: ADMIT Internal Medicine; ATTEND Internal Medicine
PROC: 3E0F7GC Introduction of Other Therapeutic Substance into Respiratory Tract, Via Natural or Artificial Opening (ICD-10-PCS; principal; 2022-10-15)
PROC: 3E03329 Introduction of Other Anti-infective into Peripheral Vein, Percutaneous Approach (ICD-10-PCS; 2022-10-15)
PROC: 3E023GC Introduction of Other Therapeutic Substance into Muscle, Percutaneous Approach (ICD-10-PCS; 2022-10-15)
PROC: 3E0333Z Introduction of Anti-inflammatory into Peripheral Vein, Percutaneous Approach (ICD-10-PCS; 2022-10-15)
PROC: 3E033GC Introduction of Other Therapeutic Substance into Peripheral Vein, Percutaneous Approach (ICD-10-PCS; 2022-10-15)
DX: J45.901 Unspecified asthma with (acute) exacerbation (principal); R06.02 Shortness of breath; E03.9 Hypothyroidism, unspecified; J30.2 Other seasonal allergic rhinitis; R07.89 Other chest pain
CPT/HCPCS: 0241U-QW; 36415; 71046-TC-FY; 71275-TC; 80048; 80053; 80061; 81003; 83735; 84100; 84443; 84484; 84703; 85025; 85027; 85379; 85610; 85730; 86003; 87070; 87086; 87186; 87205; 87899; 93005; 93010; 93306-TC; 94640; 96365; 96372; 96375; 99285-25; G0378; Q9967

== ENCOUNTER 2023-06-13 12:44 | Emergency (ER) | payer OTHER ==
[2023-06-13 12:53] VITALS: BMI 39.9
[2023-06-13] MEDS ORDERED: IBUPROFEN 400 MG TABLET (FP) PO ONE ×2 (14:14→14:33)
[2023-06-13 17:55] VITALS: BP 128/68; PULSE 76; RESP 18; TEMP 98
== END 2023-06-13 17:56 | disposition home or self-care (01) ==
LOC: JER 12:44
DX: R05.9 Cough, unspecified (principal); R09.89 Other specified symptoms and signs involving the circulatory and respiratory systems; R06.2 Wheezing; R50.9 Fever, unspecified; R10.9 Unspecified abdominal pain; J06.9 Acute upper respiratory infection, unspecified; R06.02 Shortness of breath; M79.10 Myalgia, unspecified site; Z20.822 Contact with and (suspected) exposure to COVID-19
CPT/HCPCS: 0241U-QW; 71046-TC-FY; 76705-TC; 99285-25

== ENCOUNTER 2023-08-12 11:11 | Emergency (ER) | payer OTHER ==
[2023-08-12 11:19] VITALS: BMI 39.9
[2023-08-12] MEDS ORDERED: KETOROLAC TROMETHAMINE 15 MG/ML VIAL IVPUSH ONE (12:01)
[2023-08-12] MEDS ORDERED: ACETAMINOPHEN 1000 MG/100 ML BAG IVPB ONE (12:01)
[2023-08-12] MEDS ORDERED: KETOROLAC TROMETHAMINE 15 MG/ML VIAL ONE (12:03)
[2023-08-12] MEDS ORDERED: ACETAMINOPHEN INJECTION 100 ML IVPB ONE (12:03)
[2023-08-12 12:27] LABS: BASO % 0.6 % (0-2.0); HEMATOCRIT 39.8 % (32.4-45.2); HEMOGLOBIN 12.8 GM/dL (10.7-15.3); LYMPH % 43.9 % (8-40); MCH 24.8 pg (25.7-33.7); MEAN CELL VOLUME 77.4 fl (80-96); MEAN PLT VOLUME 6.5 fl (7.5-11.1); MONO % 9.1 % (3.8-10.2); NEUT % 42.4 % (42.8-82.8); PLATELET COUNT 345 10^3/uL (134-434); RBC 5.15 M/mm3 (3.60-5.2); RDW 14.4 % (11.6-15.6); WHITE BLOOD COUNT 5.2 K/mm3 (4.0-10.0)
[2023-08-12 12:42] LABS: URINE APPEARANCE CLEAR; URINE BILIRUBIN NEGATIVE (NEGATIVE); URINE COLOR YELLOW; URINE GLUCOSE (UA) NEGATIVE (NEGATIVE); URINE KETONE NEGATIVE (NEGATIVE); URINE LEUK ESTERASE NEGATIVE (NEGATIVE); URINE NITRITE NEGATIVE (NEGATIVE); URINE PROTEIN NEGATIVE (NEGATIVE); URINE UROBILINOGEN 0.2 mg/dL (0.2-1.0)
[2023-08-12 12:44] LABS: POTASSIUM 4.5 mmol/L (3.5-5.1)
[2023-08-12 12:45] LABS: HCG,QUALITATIVE URINE Negative
[2023-08-12 12:48] LABS: ALBUMIN 3.6 g/dl (3.4-5.0); CALCIUM 9.7 mg/dL (8.5-10.1)
[2023-08-12 12:49] LABS: BLOOD UREA NITROGEN 13.6 mg/dL (7-18)
[2023-08-12 12:53] LABS: BILIRUBIN,TOTAL 0.3 mg/dL (0.2-1); TOT PROT 7.3 g/dl (6.4-8.2)
[2023-08-12 13:05] LABS: CREATININE 0.6 mg/dL (0.55-1.3)
[2023-08-12 16:48] VITALS: BP 106/68; PULSE 68; RESP 20; TEMP 97.9
== END 2023-08-12 18:19 | disposition home or self-care (01) ==
LOC: JER 11:11
PROC: 3E033NZ Introduction of Analgesics, Hypnotics, Sedatives into Peripheral Vein, Percutaneous Approach (ICD-10-PCS; principal; 2023-08-12)
PROC: 3E0333Z Introduction of Anti-inflammatory into Peripheral Vein, Percutaneous Approach (ICD-10-PCS; 2023-08-12)
DX: R10.11 Right upper quadrant pain (principal)
CPT/HCPCS: 36415; 74176-TC; 76775-TC; 80053; 81003; 83605; 83690; 84484; 84703; 85025; 87086; 93005; 93010; 99285-25

== ENCOUNTER 2023-12-29 09:14 | Inpatient (IN) | payer OTHER ==
[2023-12-29] MEDS ORDERED: ALBUTEROL SO4 2.5/IPRATROPIUM 0.5 INH SOL 3 ML VIAL.NEB. NEB ONE ×2 (09:56→11:00)
[2023-12-29] MEDS ORDERED: ACETAMINOPHEN INJECTION 100 ML IVPB ONE (09:57)
[2023-12-29] MEDS: SODIUM CHLORIDE 0.9% 500 ML INFUS.BAG IV ONE (10:19)
[2023-12-29] MEDS: ACETAMINOPHEN 1000 MG/100 ML BAG IVPB ONE (10:19)
[2023-12-29] MEDS: ALBUTEROL SO4 2.5/IPRATROPIUM 0.5 INH SOL 3 ML VIAL.NEB. NEB SCH (10:21)
[2023-12-29 10:24] LABS: BASO % 0.5 % (0-2.0); EOS % 5.3 % (0-4.5); HEMATOCRIT 44.3 % (32.4-45.2); HEMOGLOBIN 14.6 GM/dL (10.7-15.3); LYMPH % 37.4 % (8-40); MCH 24.7 pg (25.7-33.7); MEAN CELL VOLUME 74.8 fl (80-96); MEAN PLT VOLUME 6.8 fl (7.5-11.1); MONO % 15.2 % (3.8-10.2); NEUT % 41.6 % (42.8-82.8); PLATELET COUNT 323 10^3/uL (134-434); RBC 5.93 M/mm3 (3.60-5.2); RDW 15.8 % (11.6-15.6); WHITE BLOOD COUNT 4.8 K/mm3 (4.0-10.0)
[2023-12-29] MEDS ORDERED: methylPREDNISolone NA SUCC 125 MG/2 ML VIAL ONE (10:47)
[2023-12-29 10:50] LABS: ALBUMIN 4.1 g/dl (3.4-5.0); CALCIUM 9.6 mg/dL (8.5-10.1)
[2023-12-29 10:52] LABS: BLOOD UREA NITROGEN 13.5 mg/dL (7-18)
[2023-12-29 10:54] LABS: CREATININE 0.7 mg/dL (0.55-1.3)
[2023-12-29 10:56] LABS: BILIRUBIN,TOTAL 0.4 mg/dL (0.2-1); TOT PROT 8.2 g/dl (6.4-8.2)
[2023-12-29] MEDS: methylPREDNISolone NA SUCC 125 MG/2 ML VIAL IVPUSH ONE (10:56)
[2023-12-29] MEDS: ALBUTEROL SO4 2.5/IPRATROPIUM 0.5 INH SOL 3 ML VIAL.NEB. NEB ONE (11:03)
[2023-12-29] MEDS ORDERED: guaiFENesin/CODEINE 10 ML UNIT-DOSE CUPS ONE (11:27)
[2023-12-29] MEDS: guaiFENesin 200 MG/10 ML 10 ML UNIT-DOSE CUPS PO ONE (11:29)
[2023-12-29] MEDS ORDERED: ALBUTEROL SO4 0.083% IH SOL 2.5 MG/3 ML VIAL.NEB. NEB ONE (13:45)
[2023-12-29] MEDS: ALBUTEROL SO4 0.083% IH SOL 2.5 MG/3 ML VIAL.NEB. NEB ONE (13:48)
[2023-12-29] MEDS: guaiFENesin/D-METHORPHAN HB 10 ML UNIT-DOSE CUPS PO PRN (16:22)
[2023-12-29 16:37] VITALS: BMI 35.6
[2023-12-29] MEDS: ALBUTEROL SO4 0.083% IH SOL 2.5 MG/3 ML VIAL.NEB. NEB PRN (17:06)
[2023-12-29] MEDS: LORATADINE 10 MG TABLET PO SCH (17:28)
[2023-12-29] MEDS: CEFTRIAXONE 1 GM in DEXTROSE 5%-WATER - 50 ML IVPB SCH (17:28)
[2023-12-29] MEDS: AZITHROMYCIN IVPB 500 MG/250 ML BAG IVPB SCH (17:29)
[2023-12-30] MEDS: LEVOTHYROXINE NA 75 MCG TABLET (FP) PO SCH (10:20)
[2023-12-30] MEDS: amLODIPine BESYLATE 10 MG TABLET (FP) PO SCH (10:20)
[2023-12-30] MEDS ORDERED: guaiFENesin/D-METHORPHAN HB 10 ML UNIT-DOSE CUPS PO PRN (11:01)
[2023-12-30] MEDS: methylPREDNISolone NA SUCC 40 MG/1 ML VIAL IVPUSH SCH (11:15)
[2023-12-30] MEDS: BENZOCAINE/MENTH/CETYLPYRD CL 1 EACH LOZENGE MM PRN (17:47)
[2023-12-30] MEDS: ALBUTEROL SO4 2.5/IPRATROPIUM 0.5 INH SOL 3 ML VIAL.NEB. NEB SCH (19:54)
[2023-12-30] MEDS: MONTELUKAST NA 10 MG TABLET PO SCH (22:42)
[2023-12-30] MEDS: BUDESONIDE/FORMETEROL FUMARATE 160/4.5 mcg INHALER IH SCH (22:43)
[2023-12-31 07:11] LABS: BASO % 0.2 % (0-2.0); HEMATOCRIT 39.5 % (32.4-45.2); HEMOGLOBIN 12.8 GM/dL (10.7-15.3); LYMPH % 14.9 % (8-40); MCH 24.6 pg (25.7-33.7); MCHC 32.4 g/dl (32.0-36.0); MEAN CELL VOLUME 75.8 fl (80-96); MEAN PLT VOLUME 7.4 fl (7.5-11.1); MONO % 5.1 % (3.8-10.2); NEUT % 79.8 % (42.8-82.8); PLATELET COUNT 343 10^3/uL (134-434); RBC 5.21 M/mm3 (3.60-5.2); RDW 15.3 % (11.6-15.6); WHITE BLOOD COUNT 8.3 K/mm3 (4.0-10.0)
[2023-12-31 07:29] LABS: POTASSIUM 4.3 mmol/L (3.5-5.1)
[2023-12-31 07:55] LABS: ALBUMIN 4.1 g/dl (3.4-5.0); BLOOD UREA NITROGEN 13.8 mg/dL (7-18); CALCIUM 9.9 mg/dL (8.5-10.1)
[2023-12-31 07:58] LABS: CREATININE 0.6 mg/dL (0.55-1.3)
[2023-12-31 08:00] LABS: BILIRUBIN,TOTAL 0.3 mg/dL (0.2-1); TOT PROT 7.9 g/dl (6.4-8.2)
[2023-12-31] MEDS: PANTOPRAZOLE 40 MG TABLET PO SCH (09:09)
[2023-12-31] MEDS: LOSARTAN POTASSIUM 50 MG TABLET PO SCH (09:09)
[2023-12-31] MEDS: FLUTICASONE PROP 0.05% 16 GM NASAL SPRAY NS SCH (12:42)
[2023-12-31] MEDS: ALBUTEROL SO4 2.5/IPRATROPIUM 0.5 INH SOL 3 ML VIAL.NEB. NEB SCH (16:15)
[2024-01-02 07:20] LABS: HEMATOCRIT 38.2 % (32.4-45.2); HEMOGLOBIN 12.7 GM/dL (10.7-15.3); MCH 25.2 pg (25.7-33.7); MCHC 33.3 g/dl (32.0-36.0); MEAN CELL VOLUME 75.7 fl (80-96); MEAN PLT VOLUME 6.7 fl (7.5-11.1); PLATELET COUNT 354 10^3/uL (134-434); RBC 5.04 M/mm3 (3.60-5.2); RDW 15.7 % (11.6-15.6); WHITE BLOOD COUNT 16.4 K/mm3 (4.0-10.0)
[2024-01-02 07:35] LABS: POTASSIUM 4.3 mmol/L (3.5-5.1)
[2024-01-02 07:38] LABS: ALBUMIN 3.8 g/dl (3.4-5.0); BLOOD UREA NITROGEN 14.6 mg/dL (7-18); CALCIUM 9.5 mg/dL (8.5-10.1)
[2024-01-02 07:41] LABS: CREATININE 0.7 mg/dL (0.55-1.3)
[2024-01-02 07:43] LABS: BILIRUBIN,TOTAL 0.4 mg/dL (0.2-1); TOT PROT 7.4 g/dl (6.4-8.2)
[2024-01-02 09:43] LABS: ANISOCYTOSIS 0; HELMET CELLS 0; HOWELL-JOLLY BODIES 0; MACROCYTOSIS 0; OVALOCYTE 0; ROULEAU 0; SICKELED CELLS 0; TARGET CELLS 0; TEAR DROP CELLS 0; TOXIC GRANULATION 0
[2024-01-03] MEDS: ATORVASTATIN CA 20 MG TABLET (FP) PO SCH (10:29)
[2024-01-03] MEDS: AZITHROMYCIN IVPB 500 MG/250 ML BAG IVPB SCH (11:48)
[2024-01-03] MEDS: PATIENT'S OWN MEDICATION (NON-FORMULARY) (Nirmatrelvir/Ritonavir 1 EACH Tablet) PO SCH (14:05)
[2024-01-03] MEDS: BENZONATATE 200 MG CAPSULE PO PRN (17:20)
[2024-01-03] MEDS: guaiFENesin/CODEINE 10 ML UNIT-DOSE CUPS PO PRN (21:01)
[2024-01-04] MEDS: guaiFENesin/CODEINE 10 ML UNIT-DOSE CUPS PO PRN (22:09)
[2024-01-07 07:41] LABS: BASO % 0.3 % (0-2.0); HEMATOCRIT 39.7 % (32.4-45.2); HEMOGLOBIN 12.7 GM/dL (10.7-15.3); LYMPH % 6.7 % (8-40); MCH 24.2 pg (25.7-33.7); MCHC 31.9 g/dl (32.0-36.0); MEAN CELL VOLUME 75.7 fl (80-96); MEAN PLT VOLUME 6.2 fl (7.5-11.1); MONO % 3.7 % (3.8-10.2); NEUT % 89.3 % (42.8-82.8); PLATELET COUNT 426 10^3/uL (134-434); RBC 5.24 M/mm3 (3.60-5.2); RDW 15.5 % (11.6-15.6); WHITE BLOOD COUNT 29.1 K/mm3 (4.0-10.0)
[2024-01-07 07:56] LABS: POTASSIUM 4.3 mmol/L (3.5-5.1)
[2024-01-07 08:01] LABS: ALBUMIN 3.4 g/dl (3.4-5.0); CALCIUM 9.4 mg/dL (8.5-10.1)
[2024-01-07 08:04] LABS: CREATININE 0.7 mg/dL (0.55-1.3)
[2024-01-07 08:05] LABS: BILIRUBIN,TOTAL 0.5 mg/dL (0.2-1); TOT PROT 6.7 g/dl (6.4-8.2)
[2024-01-08 08:00] LABS: HEMATOCRIT 37.9 % (32.4-45.2); HEMOGLOBIN 12.5 GM/dL (10.7-15.3); MCH 24.9 pg (25.7-33.7); MEAN CELL VOLUME 75.3 fl (80-96); MEAN PLT VOLUME 6.3 fl (7.5-11.1); PLATELET COUNT 361 10^3/uL (134-434); RBC 5.04 M/mm3 (3.60-5.2); RDW 15.9 % (11.6-15.6)
[2024-01-08 08:11] LABS: POTASSIUM 4.6 mmol/L (3.5-5.1)
[2024-01-08 08:16] LABS: CALCIUM 8.7 mg/dL (8.5-10.1)
[2024-01-08 08:17] LABS: ALBUMIN 3.2 g/dl (3.4-5.0); BLOOD UREA NITROGEN 22.8 mg/dL (7-18)
[2024-01-08 08:20] LABS: CREATININE 0.6 mg/dL (0.55-1.3)
[2024-01-08 08:21] LABS: TOT PROT 6.6 g/dl (6.4-8.2)
[2024-01-08 08:23] LABS: BILIRUBIN,TOTAL 0.4 mg/dL (0.2-1)
[2024-01-08 09:36] LABS: ANISOCYTOSIS 1+; MACROCYTOSIS 0
[2024-01-08 09:37] LABS: PLATELET ESTIMATE ADEQUATE
[2024-01-08] MEDS: guaiFENesin/CODEINE 10 ML UNIT-DOSE CUPS PO PRN (10:49)
[2024-01-08] MEDS: methylPREDNISolone NA SUCC 40 MG/1 ML VIAL IVPUSH SCH (14:52)
[2024-01-09 06:12] VITALS: RESP 18
[2024-01-09 07:33] LABS: HEMATOCRIT 40.7 % (32.4-45.2); MCH 24.2 pg (25.7-33.7); MCHC 31.9 g/dl (32.0-36.0); MEAN CELL VOLUME 75.6 fl (80-96); MEAN PLT VOLUME 6.1 fl (7.5-11.1); PLATELET COUNT 367 10^3/uL (134-434); RBC 5.39 M/mm3 (3.60-5.2); RDW 15.8 % (11.6-15.6); WHITE BLOOD COUNT 29.1 K/mm3 (4.0-10.0)
[2024-01-09 07:55] LABS: POTASSIUM 4.7 mmol/L (3.5-5.1)
[2024-01-09 08:06] LABS: CALCIUM 9.3 mg/dL (8.5-10.1)
[2024-01-09 08:07] LABS: ALBUMIN 3.3 g/dl (3.4-5.0); BLOOD UREA NITROGEN 20.1 mg/dL (7-18); CREATININE 0.6 mg/dL (0.55-1.3)
[2024-01-09 08:09] LABS: BILIRUBIN,TOTAL 0.4 mg/dL (0.2-1); TOT PROT 6.7 g/dl (6.4-8.2)
[2024-01-09 09:16] LABS: ANISOCYTOSIS 0; MACROCYTOSIS 0
[2024-01-09] MEDS ORDERED: ALBUTEROL SO4 2.5/IPRATROPIUM 0.5 INH SOL 3 ML VIAL.NEB. NEB PRN (15:03)
[2024-01-10 07:06] LABS: BLOOD UREA NITROGEN 31.7 mg/dL (7-18); CALCIUM 8.8 mg/dL (8.5-10.1)
[2024-01-10 07:14] LABS: HEMATOCRIT 39.3 % (32.4-45.2); HEMOGLOBIN 12.4 GM/dL (10.7-15.3); MCH 24.1 pg (25.7-33.7); MCHC 31.5 g/dl (32.0-36.0); MEAN CELL VOLUME 76.4 fl (80-96); MEAN PLT VOLUME 6.4 fl (7.5-11.1); PLATELET COUNT 316 10^3/uL (134-434); RBC 5.14 M/mm3 (3.60-5.2); RDW 15.9 % (11.6-15.6); WHITE BLOOD COUNT 25.5 K/mm3 (4.0-10.0)
[2024-01-10 08:21] LABS: POTASSIUM 4.4 mmol/L (3.5-5.1)
[2024-01-10 08:27] LABS: CREATININE 0.7 mg/dL (0.55-1.3)
[2024-01-10 08:28] LABS: BILIRUBIN,TOTAL 0.4 mg/dL (0.2-1); TOT PROT 6.2 g/dl (6.4-8.2)
[2024-01-10 09:30] LABS: PLATELET ESTIMATE ADEQUATE
[2024-01-10 15:33] VITALS: BP 128/87; PULSE 77; TEMP 98.2
[2024-01-10] MEDS ORDERED: DEXAMETHASONE 4 MG TABLET (FP) PO SCH (22:00)
== END 2024-01-10 17:30 | disposition home or self-care (01) | DRG 141 ==
LOC: JER 09:14 → JERBED 14:08 → J7W 15:15
PROVIDERS: ADMIT Internal Medicine; ATTEND Internal Medicine
DX: J45.901 Unspecified asthma with (acute) exacerbation (principal); I10 Essential (primary) hypertension; E03.9 Hypothyroidism, unspecified; D72.829 Elevated white blood cell count, unspecified; F41.9 Anxiety disorder, unspecified; E66.9 Obesity, unspecified; Z68.35 Body mass index [BMI] 35.0-35.9, adult
CPT/HCPCS: 0241U-QW; 36415; 71046-TC-FY; 71275-TC; 80053; 80061; 82550; 82962; 83036; 83690; 83735; 83880; 84439; 84443; 84484; 84703; 85025; 93005; 93010; 93306-TC; 94010; 94640; 99285-25; J0131; Q9967